=== PATIENT | female | born 1945 | race Caucasian/White ===

== ENCOUNTER → 2016-04-05 | Outpatient (CLI) | payer MEDICARE, MEDICAID ==
[~2016-04-05] MED LIST: ATEN50TA PO; CYANOCOBALAMIN (B-12) 1000 MCG/1 ML VIAL IM ONE; CYANOCOBALAMIN (B-12) 1000 MCG/1 ML VIAL ONE; IBUP-1174 PO; LEVO175T33 PO; MACI1TAB2 PO; MULTTAB61 OR; RAMI10CA38 PO; RIOC1TAB3 PO
[2016-04-05 15:28] VITALS: BP 161/71
[2016-04-05 16:14] LABS: Basophils # (auto) 0 uL; Basophils % (auto) 0.3 % (0.0-2.0); Eosinophils # (auto) 0.1 uL; Eosinophils % (auto) 2.2 % (0.0-7.0); Hematocrit 36.6 % (36.0-46.0); Hemoglobin 11.6 g/dL (12.2-16.2); Lymphocytes # (auto) 1.4 uL; Lymphocytes % (auto) 29.2 % (10.0-50.0); Mean Corpuscular Hemoglobin 27.5 pg (28.0-32.0); Mean Corpuscular Hgb Conc. 31.7 g/dL (32.0-36.0); Mean Corpuscular Volume 86.8 fL (80.0-100.0); Mean Platelet Volume 7.5 fL (7.4-10.4); Monocytes # (auto) 0.5 uL; Monocytes % (auto) 9.6 % (0.0-12.0); Neutrophils # (auto) 2.9 uL; Neutrophils % (auto) 58.7 % (37.0-80.0); Platelet Count (auto) 243 10^3/uL (140-450); Red Cell Distribution Width 15.5 % (11.6-16.0); White Blood Cell 4.9 10^3/uL (4.4-10.8)
[2016-04-05 16:32] LABS: Albumin 3.3 g/dL (3.4-5.0); Calcium 8.6 mg/dL (8.5-10.1); Magnesium 2.1 mg/dL (1.6-2.6); Potassium 3.9 mmol/L (3.5-5.1)
[2016-04-05 16:35] LABS: BUN/Creatinine Ratio 22.7; Bilirubin, Total 0.5 mg/dL (0.2-1.0); Total Protein 6.9 g/dL (6.4-8.2)
== END | disposition home or self-care (01) ==
LOC: CHF HDHVI 15:07
PROVIDERS: ATTEND Internal Medicine Cardiovascular Disease
DX: I10 Essential (primary) hypertension (principal); D64.9 Anemia, unspecified; E83.40 Disorders of magnesium metabolism, unspecified; E11.9 Type 2 diabetes mellitus without complications
CPT/HCPCS: 36415; 80053; 83036; 83735; 85025; 93701; 96372; G0463

== ENCOUNTER → 2016-04-19 | Outpatient (CLI) | payer MEDICARE, MEDICAID ==
[2016-04-19 14:00] VITALS: BP 138/54
[2016-04-19 15:55] VITALS: BP 113/44
[2016-04-19 16:38] LABS: Basophils # (auto) 0 uL; Basophils % (auto) 0.2 % (0.0-2.0); Eosinophils # (auto) 0.1 uL; Eosinophils % (auto) 1.6 % (0.0-7.0); Hematocrit 37.8 % (36.0-46.0); Hemoglobin 11.8 g/dL (12.2-16.2); Lymphocytes # (auto) 1.1 uL; Lymphocytes % (auto) 12.3 % (10.0-50.0); Mean Corpuscular Hemoglobin 27.4 pg (28.0-32.0); Mean Corpuscular Hgb Conc. 31.2 g/dL (32.0-36.0); Mean Corpuscular Volume 87.8 fL (80.0-100.0); Mean Platelet Volume 8.6 fL (7.4-10.4); Monocytes # (auto) 0.9 uL; Monocytes % (auto) 9.7 % (0.0-12.0); Neutrophils # (auto) 6.8 uL; Neutrophils % (auto) 76.2 % (37.0-80.0); Platelet Count (auto) 256 10^3/uL (140-450); Red Cell Distribution Width 14.9 % (11.6-16.0); White Blood Cell 8.9 10^3/uL (4.4-10.8)
[2016-04-19 16:43] LABS: Potassium 3.6 mmol/L (3.5-5.1)
== END | disposition home or self-care (01) ==
LOC: CHF HDHVI 14:06
PROVIDERS: ATTEND Internal Medicine Cardiovascular Disease
DX: J06.9 Acute upper respiratory infection, unspecified (principal); R09.3 Abnormal sputum; I50.9 Heart failure, unspecified; Z79.899 Other long term (current) drug therapy; D64.9 Anemia, unspecified
CPT/HCPCS: 36415; 82565; 84132; 84520; 85025; 87070; 87205; G0463

== ENCOUNTER → 2016-04-24 | Outpatient (CLI) | payer MEDICARE, MEDICAID ==
[~2016-04-24] MED LIST changes: -CYANOCOBALAMIN (B-12) 1000 MCG/1 ML VIAL IM ONE; -CYANOCOBALAMIN (B-12) 1000 MCG/1 ML VIAL ONE
[2016-04-24 14:35] VITALS: BP 166/67
[2016-04-24 15:20] VITALS: BP 164/64
== END | disposition home or self-care (01) ==
LOC: Rad HDHVI 14:42
PROVIDERS: ATTEND Internal Medicine Cardiovascular Disease
DX: I11.0 Hypertensive heart disease with heart failure (principal)
CPT/HCPCS: 71020; G0463

== ENCOUNTER → 2016-07-23 | Outpatient (CLI) | payer MEDICARE, MEDICAID ==
[~2016-07-23] MED LIST changes: +CYANOCOBALAMIN (B-12) 1000 MCG/1 ML VIAL IM ONE; +CYANOCOBALAMIN (B-12) 1000 MCG/1 ML VIAL ONE
[2016-07-23 13:00] VITALS: BP 129/68
[2016-07-23 14:45] VITALS: BP 140/73
[2016-07-23 16:30] LABS: Basophils # (auto) 0 uL; Basophils % (auto) 0.1 % (0.0-2.0); Eosinophils # (auto) 0.1 uL; Eosinophils % (auto) 1.3 % (0.0-7.0); Hematocrit 36.3 % (36.0-46.0); Hemoglobin 12.1 g/dL (12.2-16.2); Lymphocytes # (auto) 1.7 uL; Lymphocytes % (auto) 32.1 % (10.0-50.0); Mean Corpuscular Hemoglobin 28.6 pg (28.0-32.0); Mean Corpuscular Hgb Conc. 33.2 g/dL (32.0-36.0); Mean Platelet Volume 8.1 fL (7.4-10.4); Monocytes # (auto) 0.5 uL; Neutrophils % (auto) 56.5 % (37.0-80.0); Platelet Count (auto) 212 10^3/uL (140-450); Red Cell Distribution Width 16.3 % (11.6-16.0); White Blood Cell 5.3 10^3/uL (4.4-10.8)
[2016-07-23 17:04] LABS: BUN/Creatinine Ratio 29.3; Calcium 9.1 mg/dL (8.5-10.1); Magnesium 2.4 mg/dL (1.6-2.6)
== END | disposition home or self-care (01) ==
LOC: CHF HDHVI 13:04
PROVIDERS: ATTEND Internal Medicine Cardiovascular Disease
DX: I10 Essential (primary) hypertension (principal); E83.42 Hypomagnesemia; D64.9 Anemia, unspecified
CPT/HCPCS: 36415; 80048; 83735; 85025; 93005; 96372; G0463

== ENCOUNTER → 2016-07-31 | Outpatient (CLI) | payer MEDICARE, MEDICAID ==
[~2016-07-31] MED LIST changes: -CYANOCOBALAMIN (B-12) 1000 MCG/1 ML VIAL IM ONE; -CYANOCOBALAMIN (B-12) 1000 MCG/1 ML VIAL ONE
== END | disposition home or self-care (01) ==
LOC: Rad HDHVI 09:23
PROVIDERS: ATTEND Internal Medicine Cardiovascular Disease
DX: I10 Essential (primary) hypertension (principal); I82.210 Acute embolism and thrombosis of superior vena cava
CPT/HCPCS: 93306

== ENCOUNTER → 2016-08-03 | Outpatient (CLI) | payer MEDICARE, MEDICAID ==
[~2016-08-03] VITALS: Ht 180.3 cm; Wt 110.7 kg
== END | disposition home or self-care (01) ==
LOC: Rad HDHVI 09:14
PROVIDERS: ATTEND Internal Medicine Cardiovascular Disease
DX: I25.10 Atherosclerotic heart disease of native coronary artery without angina pectoris (principal); I10 Essential (primary) hypertension
CPT/HCPCS: 78452; 93017; 96374; A9500

== ENCOUNTER → 2016-11-12 | Outpatient (CLI) | payer MEDICARE, MEDICAID ==
[2016-11-12 13:10] VITALS: BP 144/66
[2016-11-12 14:15] VITALS: BP 144/66
[2016-11-12 16:28] LABS: Basophils # (auto) 0 uL; Basophils % (auto) 0.3 % (0.0-2.0); CONDITION Y; Eosinophils # (auto) 0.1 uL; Eosinophils % (auto) 1.2 % (0.0-7.0); Hematocrit 38.7 % (36.0-46.0); Hemoglobin 12.8 g/dL (12.2-16.2); Lymphocytes # (auto) 1.5 uL; Lymphocytes % (auto) 27.6 % (10.0-50.0); Mean Corpuscular Hemoglobin 28.9 pg (28.0-32.0); Mean Corpuscular Hgb Conc. 32.9 g/dL (32.0-36.0); Mean Corpuscular Volume 87.8 fL (80.0-100.0); Monocytes # (auto) 0.5 uL; Monocytes % (auto) 9.2 % (0.0-12.0); Neutrophils # (auto) 3.4 uL; Neutrophils % (auto) 61.7 % (37.0-80.0); Platelet Count (auto) 216 10^3/uL (140-450); Red Cell Distribution Width 15.1 % (11.6-16.0); White Blood Cell 5.6 10^3/uL (4.4-10.8)
[2016-11-12 16:54] LABS: Albumin 3.6 g/dL (3.4-5.0); BUN/Creatinine Ratio 27.6; Bilirubin, Total 0.4 mg/dL (0.2-1.0); Calcium 9.2 mg/dL (8.5-10.1); Magnesium 2.4 mg/dL (1.6-2.6); Potassium 3.8 mmol/L (3.5-5.1); Total Protein 7.3 g/dL (6.4-8.2); Urine Bilirubin Negative (Negative); Urine Blood 3+ /uL (Negative); Urine Color PINK (Yellow); Urine Glucose Normal (Normal); Urine Ketone Negative (Negative); Urine Mucus FEW (None Seen); Urine Nitrite Negative (Negative); Urine RBC 516 /hpf (0 - 4); Urine Squamous Epithelial Cell FEW /hpf (<5); Urine Urobilinogen Normal (Negative); Urine pH 5.5 (5.0-8.0)
== END | disposition home or self-care (01) ==
LOC: CHF HDHVI 13:16
PROVIDERS: ATTEND Internal Medicine Cardiovascular Disease
DX: I10 Essential (primary) hypertension (principal); E11.9 Type 2 diabetes mellitus without complications; E83.42 Hypomagnesemia; E55.9 Vitamin D deficiency, unspecified; D64.9 Anemia, unspecified; N39.0 Urinary tract infection, site not specified
CPT/HCPCS: 36415; 80053; 81001; 82306; 83036; 83735; 85025; 87086; 93701; 94620; G0463

== ENCOUNTER → 2017-01-14 | Outpatient (CLI) | payer MEDICARE, MEDICAID ==
[~2017-01-14] MED LIST changes: +CYANOCOBALAMIN (B-12) 1000 MCG/1 ML VIAL ONE; +CYANOCOBALAMIN (B-12) 1000 MCG/1 ML VIAL SUBCUT ONE
[2017-01-14 13:30] VITALS: BP 168/71
[2017-01-14 16:19] LABS: Basophils # (auto) 0 uL; Basophils % (auto) 0.4 % (0.0-2.0); Eosinophils # (auto) 0.1 uL; Eosinophils % (auto) 1.8 % (0.0-7.0); Hematocrit 37.3 % (36.0-46.0); Hemoglobin 12.5 g/dL (12.2-16.2); Lymphocytes # (auto) 1.5 uL; Lymphocytes % (auto) 27.9 % (10.0-50.0); Mean Corpuscular Hgb Conc. 33.5 g/dL (32.0-36.0); Mean Corpuscular Volume 86.4 fL (80.0-100.0); Mean Platelet Volume 7.4 fL (6.9-10.8); Monocytes # (auto) 0.5 uL; Neutrophils # (auto) 3.3 uL; Neutrophils % (auto) 60.9 % (37.0-80.0); Nucleated Red Blood Cells % 0.1 %; Platelet Count (auto) 192 10^3/uL (140-450); Red Cell Distribution Width 14.5 % (11.8-14.3); White Blood Cell 5.4 10^3/uL (4.4-10.8)
[2017-01-14 16:38] LABS: Albumin 3.4 g/dL (3.4-5.0); Calcium 8.8 mg/dL (8.5-10.1); Magnesium 2.3 mg/dL (1.6-2.6); Potassium 4.4 mmol/L (3.5-5.1)
[2017-01-14 16:46] LABS: BUN/Creatinine Ratio 18.7; Bilirubin, Total 0.4 mg/dL (0.2-1.0)
== END | disposition home or self-care (01) ==
LOC: CHF HDHVI 13:35
PROVIDERS: ATTEND Internal Medicine Cardiovascular Disease
DX: I10 Essential (primary) hypertension (principal); E83.42 Hypomagnesemia; D64.9 Anemia, unspecified; J44.9 Chronic obstructive pulmonary disease, unspecified; M79.89 Other specified soft tissue disorders
CPT/HCPCS: 36415; 80053; 83735; 85025; 93701; 96372; G0463; J3420

== ENCOUNTER → 2017-02-12 | Outpatient (CLI) | payer MEDICARE, MEDICAID ==
[~2017-02-12] MED LIST changes: -CYANOCOBALAMIN (B-12) 1000 MCG/1 ML VIAL ONE; -CYANOCOBALAMIN (B-12) 1000 MCG/1 ML VIAL SUBCUT ONE
== END | disposition home or self-care (01) ==
LOC: Rad HDHVI 10:42
PROVIDERS: ATTEND Internal Medicine Cardiovascular Disease
DX: I70.0 Atherosclerosis of aorta (principal); J98.11 Atelectasis
CPT/HCPCS: 71020

== ENCOUNTER → 2017-03-15 | Outpatient (CLI) | payer MEDICARE, MEDICAID ==
[~2017-03-15] MED LIST changes: +IOHEXOL 350 MG/ML 100ML IJ ONE; +KETOROLAC TROMETH 60MG/2ML VIAL IM ONE
[2017-03-15 11:40] VITALS: BP 135/59
[2017-03-15 12:44] VITALS: BP 126/59
== END | disposition home or self-care (01) ==
LOC: Rad HDHVI 11:09
PROVIDERS: ATTEND Internal Medicine Cardiovascular Disease
DX: I51.7 Cardiomegaly (principal); I70.0 Atherosclerosis of aorta; J98.11 Atelectasis; I50.9 Heart failure, unspecified; M47.899 Other spondylosis, site unspecified
CPT/HCPCS: 71275; 82565; 96372; 96374; 96375; G0463; J1885; Q9967

== ENCOUNTER → 2017-04-02 | Outpatient (CLI) | payer MEDICARE, MEDICAID ==
[~2017-04-02] MED LIST changes: +ALBUTEROL SULF 2.5 MG/0.5ML(0.5%) NEB SOLN NEB ONE; +ALBUTEROL SULF 2.5 MG/0.5ML(0.5%) NEB SOLN ONE; +CYANOCOBALAMIN (B-12) 1000 MCG/1 ML VIAL IM ONE; +CYANOCOBALAMIN (B-12) 1000 MCG/1 ML VIAL ONE; -IOHEXOL 350 MG/ML 100ML IJ ONE; -KETOROLAC TROMETH 60MG/2ML VIAL IM ONE
[2017-04-02 13:35] VITALS: BP 153/67
[2017-04-02 14:50] VITALS: BP 148/68
== END | disposition home or self-care (01) ==
LOC: Rad HDHVI 13:11
PROVIDERS: ATTEND Internal Medicine Cardiovascular Disease
DX: G45.9 Transient cerebral ischemic attack, unspecified (principal); I27.21 Secondary pulmonary arterial hypertension; D64.9 Anemia, unspecified; J06.9 Acute upper respiratory infection, unspecified
CPT/HCPCS: 93880; 94640; 96372; G0463; J3420

== ENCOUNTER → 2017-04-29 | Outpatient (CLI) | payer MEDICARE, MEDICAID ==
[~2017-04-29] MED LIST changes: -ALBUTEROL SULF 2.5 MG/0.5ML(0.5%) NEB SOLN NEB ONE; -ALBUTEROL SULF 2.5 MG/0.5ML(0.5%) NEB SOLN ONE; +IOHEXOL 350 MG/ML 100ML IJ ONE
[2017-04-29 14:18] VITALS: BP 149/59
[2017-04-29 14:55] VITALS: BP 141/66
== END | disposition home or self-care (01) ==
LOC: Rad HDHVI 14:09
PROVIDERS: ATTEND Internal Medicine Cardiovascular Disease
DX: E04.2 Nontoxic multinodular goiter (principal)
CPT/HCPCS: 70491; 82565; 96372; 96374; G0463; J3420; Q9967

== ENCOUNTER → 2017-06-07 | Outpatient (CLI) | payer MEDICARE, MEDICAID ==
[~2017-06-07] MED LIST changes: -IOHEXOL 350 MG/ML 100ML IJ ONE
[2017-06-07 12:35] VITALS: BP 174/69
[2017-06-07 13:40] VITALS: BP 184/82
[2017-06-07 15:52] LABS: Basophils # (auto) 0 uL; Basophils % (auto) 0.4 % (0.0-2.0); Eosinophils # (auto) 0.1 uL; Eosinophils % (auto) 1.4 % (0.0-7.0); Hematocrit 36.7 % (36.0-46.0); Lymphocytes # (auto) 1.2 uL; Lymphocytes % (auto) 27.9 % (10.0-50.0); Mean Corpuscular Hemoglobin 28.8 pg (28.0-32.0); Mean Corpuscular Hgb Conc. 32.8 g/dL (32.0-36.0); Mean Corpuscular Volume 87.9 fL (80.0-100.0); Monocytes # (auto) 0.5 uL; Monocytes % (auto) 10.7 % (0.0-12.0); Neutrophils # (auto) 2.6 uL; Neutrophils % (auto) 59.6 % (37.0-80.0); Nucleated Red Blood Cells % 0.5 %; Platelet Count (auto) 188 10^3/uL (140-450); Red Blood Cells 4.17 10^6/uL (4.0-5.20); Red Cell Distribution Width 15.4 % (11.8-14.3); White Blood Cell 4.3 10^3/uL (4.4-10.8)
[2017-06-07 15:59] LABS: Albumin 3.6 g/dL (3.4-5.0); Bilirubin, Total 0.5 mg/dL (0.2-1.0); Calcium 8.8 mg/dL (8.5-10.1); Potassium 4.3 mmol/L (3.5-5.1); Total Protein 7.3 g/dL (6.4-8.2)
== END | disposition home or self-care (01) ==
LOC: CHF HDHVI 13:22
PROVIDERS: ATTEND Internal Medicine Cardiovascular Disease
DX: I11.0 Hypertensive heart disease with heart failure (principal); I50.23 Acute on chronic systolic (congestive) heart failure; D51.9 Vitamin B12 deficiency anemia, unspecified; R53.83 Other fatigue; I27.21 Secondary pulmonary arterial hypertension; R06.00 Dyspnea, unspecified; R06.02 Shortness of breath; I50.32 Chronic diastolic (congestive) heart failure; J44.9 Chronic obstructive pulmonary disease, unspecified; Z79.899 Other long term (current) drug therapy
CPT/HCPCS: 36415; 80053; 82306; 82607; 85025; 93701; 94618; 96372; G0463; J3420

== ENCOUNTER → 2017-06-10 | Outpatient (CLI) | payer MEDICARE, MEDICAID ==
[~2017-06-10] MED LIST changes: -CYANOCOBALAMIN (B-12) 1000 MCG/1 ML VIAL IM ONE; -CYANOCOBALAMIN (B-12) 1000 MCG/1 ML VIAL ONE
== END | disposition home or self-care (01) ==
LOC: Rad HDHVI 14:59
PROVIDERS: ATTEND Internal Medicine Cardiovascular Disease
DX: I08.1 Rheumatic disorders of both mitral and tricuspid valves (principal); J44.9 Chronic obstructive pulmonary disease, unspecified; I11.0 Hypertensive heart disease with heart failure; I50.32 Chronic diastolic (congestive) heart failure; E11.9 Type 2 diabetes mellitus without complications; Z79.899 Other long term (current) drug therapy
CPT/HCPCS: 93306

== ENCOUNTER → 2017-08-08 | Outpatient (CLI) | payer MEDICARE, MEDICAID ==
[~2017-08-08] VITALS: Ht 177.8 cm; Wt 98.9 kg
[~2017-08-08] MED LIST changes: +ADENOSINE 83 MG in GIVE UN-DILUTED 0 ML IV ONE; +ADENOSINE 90 MG/30 ML INJ IV ONE
== END | disposition home or self-care (01) ==
LOC: Rad HDHVI 10:47
PROVIDERS: ATTEND Internal Medicine Cardiovascular Disease
DX: I11.0 Hypertensive heart disease with heart failure (principal); I50.23 Acute on chronic systolic (congestive) heart failure; E70.0 Classical phenylketonuria; R60.9 Edema, unspecified; J44.9 Chronic obstructive pulmonary disease, unspecified; E11.9 Type 2 diabetes mellitus without complications; I25.10 Atherosclerotic heart disease of native coronary artery without angina pectoris; E03.9 Hypothyroidism, unspecified; E78.5 Hyperlipidemia, unspecified; Z79.899 Other long term (current) drug therapy
CPT/HCPCS: 78452; 93005; 96374; 96375; A9500; J0153

== ENCOUNTER → 2017-09-05 | Outpatient (CLI) | payer MEDICARE, MEDICAID ==
[~2017-09-05] MED LIST changes: -ADENOSINE 83 MG in GIVE UN-DILUTED 0 ML IV ONE; -ADENOSINE 90 MG/30 ML INJ IV ONE; +CYANOCOBALAMIN (B-12) 1000 MCG/1 ML VIAL IM ONE; +CYANOCOBALAMIN (B-12) 1000 MCG/1 ML VIAL ONE
[2017-09-05 12:25] VITALS: BP 146/65
[2017-09-05 13:35] VITALS: BP 134/66
[2017-09-05 16:23] LABS: Albumin 3.5 g/dL (3.4-5.0); BUN/Creatinine Ratio 17.4; Calcium 8.9 mg/dL (8.5-10.1); Potassium 4.6 mmol/L (3.5-5.1); Urine Bacteria NONE SEEN /hpf (None Seen); Urine Blood 2+ /uL (Negative); Urine Specific Gravity 1.012 (1.001-1.035); Urine WBC 176 /hpf (0 - 5)
[2017-09-05 16:26] LABS: Bilirubin, Total 0.8 mg/dL (0.2-1.0); Total Protein 7.1 g/dL (6.4-8.2)
[2017-09-05 16:35] LABS: Basophils # (auto) 0 uL; Basophils % (auto) 0.3 % (0.0-2.0); Eosinophils # (auto) 0.1 uL; Eosinophils % (auto) 1.3 % (0.0-7.0); Hematocrit 40.2 % (36.0-46.0); Hemoglobin 12.8 g/dL (12.2-16.2); Lymphocytes # (auto) 1.5 uL; Lymphocytes % (auto) 26.8 % (10.0-50.0); Mean Corpuscular Hemoglobin 27.8 pg (28.0-32.0); Mean Corpuscular Hgb Conc. 31.9 g/dL (32.0-36.0); Monocytes # (auto) 0.5 uL; Monocytes % (auto) 9.8 % (0.0-12.0); Neutrophils # (auto) 3.4 uL; Neutrophils % (auto) 61.8 % (37.0-80.0); Nucleated Red Blood Cells % 0.1 %; Platelet Count (auto) 202 10^3/uL (140-450); Red Blood Cells 4.63 10^6/uL (4.0-5.20); Red Cell Distribution Width 14.4 % (11.8-14.3); White Blood Cell 5.6 10^3/uL (4.4-10.8)
== END | disposition home or self-care (01) ==
LOC: CHF HDHVI 12:24
PROVIDERS: ATTEND Internal Medicine Cardiovascular Disease
DX: D51.9 Vitamin B12 deficiency anemia, unspecified (principal); I11.0 Hypertensive heart disease with heart failure; I50.23 Acute on chronic systolic (congestive) heart failure; I25.10 Atherosclerotic heart disease of native coronary artery without angina pectoris; I27.21 Secondary pulmonary arterial hypertension; R42 Dizziness and giddiness; E03.9 Hypothyroidism, unspecified; J44.9 Chronic obstructive pulmonary disease, unspecified; E78.5 Hyperlipidemia, unspecified; E11.9 Type 2 diabetes mellitus without complications; Z79.899 Other long term (current) drug therapy
CPT/HCPCS: 36415; 80053; 81001; 83880; 84443; 85025; 87086; 96372; G0463; J3420

== ENCOUNTER → 2017-11-01 | Outpatient (CLI) | payer MEDICARE, MEDICAID ==
[~2017-11-01] MED LIST changes: +IOHEXOL 350 MG/ML 100ML IJ ONE
[2017-11-01 09:50] VITALS: BP 161/74
[2017-11-01 10:35] VITALS: BP 152/68
== END | disposition home or self-care (01) ==
LOC: Rad HDHVI 09:33
PROVIDERS: ATTEND Internal Medicine Cardiovascular Disease
DX: N39.0 Urinary tract infection, site not specified (principal); D51.9 Vitamin B12 deficiency anemia, unspecified; R16.1 Splenomegaly, not elsewhere classified; N28.1 Cyst of kidney, acquired; I70.0 Atherosclerosis of aorta; K44.9 Diaphragmatic hernia without obstruction or gangrene; I27.21 Secondary pulmonary arterial hypertension; I11.0 Hypertensive heart disease with heart failure; I50.23 Acute on chronic systolic (congestive) heart failure; E11.9 Type 2 diabetes mellitus without complications; J44.9 Chronic obstructive pulmonary disease, unspecified; I25.10 Atherosclerotic heart disease of native coronary artery without angina pectoris; E78.5 Hyperlipidemia, unspecified; E03.9 Hypothyroidism, unspecified; Z79.899 Other long term (current) drug therapy
CPT/HCPCS: 74177; 82565; 96372; G0463; J3420; Q9967

== ENCOUNTER → 2017-12-24 | Outpatient (CLI) | payer MEDICARE, MEDICAID ==
[~2017-12-24] MED LIST changes: -CYANOCOBALAMIN (B-12) 1000 MCG/1 ML VIAL IM ONE; -CYANOCOBALAMIN (B-12) 1000 MCG/1 ML VIAL ONE; -IOHEXOL 350 MG/ML 100ML IJ ONE; +KETOROLAC TROMETH 60MG/2ML VIAL IM ONE
[2017-12-24 14:05] VITALS: BP 130/62
[2017-12-24 14:40] VITALS: BP 126/60
== END | disposition home or self-care (01) ==
LOC: CHF HDHVI 13:56
PROVIDERS: ATTEND Internal Medicine Cardiovascular Disease
DX: I11.0 Hypertensive heart disease with heart failure (principal); I50.23 Acute on chronic systolic (congestive) heart failure; I20.9 Angina pectoris, unspecified; I25.10 Atherosclerotic heart disease of native coronary artery without angina pectoris; D51.3 Other dietary vitamin B12 deficiency anemia; R06.02 Shortness of breath; J44.9 Chronic obstructive pulmonary disease, unspecified; I70.0 Atherosclerosis of aorta; E78.5 Hyperlipidemia, unspecified; E03.9 Hypothyroidism, unspecified; K44.9 Diaphragmatic hernia without obstruction or gangrene; I27.29 Other secondary pulmonary hypertension; E11.9 Type 2 diabetes mellitus without complications; N28.1 Cyst of kidney, acquired; Z79.899 Other long term (current) drug therapy
CPT/HCPCS: 71046; 93005; 96372; G0463; J1885

== ENCOUNTER → 2018-02-11 | Outpatient (CLI) | payer MEDICARE, MEDICAID ==
[~2018-02-11] MED LIST changes: +CYANOCOBALAMIN (B-12) 1000 MCG/1 ML VIAL IM ONE; +CYANOCOBALAMIN (B-12) 1000 MCG/1 ML VIAL ONE
[2018-02-11 10:35] VITALS: BP 151/66
[2018-02-11 12:00] VITALS: BP 145/66
[2018-02-11 15:56] LABS: Basophils # (auto) 0 uL; Basophils % (auto) 0.4 % (0.0-2.0); Eosinophils # (auto) 0.1 uL; Eosinophils % (auto) 1.6 % (0.0-7.0); Hematocrit 38.5 % (36.0-46.0); Hemoglobin 12.6 g/dL (12.2-16.2); Lymphocytes # (auto) 0.9 uL; Lymphocytes % (auto) 26.8 % (10.0-50.0); Mean Corpuscular Hemoglobin 28.5 pg (28.0-32.0); Mean Corpuscular Hgb Conc. 32.7 g/dL (32.0-36.0); Mean Corpuscular Volume 87.1 fL (80.0-100.0); Monocytes # (auto) 0.4 uL; Monocytes % (auto) 10.3 % (0.0-12.0); Neutrophils # (auto) 2.2 uL; Neutrophils % (auto) 60.9 % (37.0-80.0); Nucleated Red Blood Cells % 0.4 %; Platelet Count (auto) 203 10^3/uL (140-450); Red Blood Cells 4.42 10^6/uL (4.0-5.20); Red Cell Distribution Width 15.7 % (11.8-14.3); White Blood Cell 3.5 10^3/uL (4.4-10.8)
[2018-02-11 16:07] LABS: Albumin 3.2 g/dL (3.4-5.0); BUN/Creatinine Ratio 17.6; Calcium 8.8 mg/dL (8.5-10.1); Magnesium 2.5 mg/dL (1.6-2.6); Potassium 4.1 mmol/L (3.5-5.1)
[2018-02-11 16:10] LABS: Bilirubin, Total 0.4 mg/dL (0.2-1.0)
== END | disposition home or self-care (01) ==
LOC: CHF HDHVI 10:25
PROVIDERS: ATTEND Internal Medicine Cardiovascular Disease
DX: S22.32XA Fracture of one rib, left side, initial encounter for closed fracture (principal); W19.XXXA Unspecified fall, initial encounter; D64.9 Anemia, unspecified; E83.40 Disorders of magnesium metabolism, unspecified; I27.21 Secondary pulmonary arterial hypertension; I11.0 Hypertensive heart disease with heart failure; I50.42 Chronic combined systolic (congestive) and diastolic (congestive) heart failure; E11.9 Type 2 diabetes mellitus without complications; I25.10 Atherosclerotic heart disease of native coronary artery without angina pectoris; J44.9 Chronic obstructive pulmonary disease, unspecified; E78.5 Hyperlipidemia, unspecified; F41.9 Anxiety disorder, unspecified; G47.33 Obstructive sleep apnea (adult) (pediatric); E03.9 Hypothyroidism, unspecified; E66.01 Morbid (severe) obesity due to excess calories; Y93.89 Activity, other specified; Y92.89 Other specified places as the place of occurrence of the external cause; Y99.8 Other external cause status; Z79.899 Other long term (current) drug therapy; Z87.440 Personal history of urinary (tract) infections; Z86.73 Personal history of transient ischemic attack (TIA), and cerebral infarction without residual deficits; Z90.710 Acquired absence of both cervix and uterus; Z90.89 Acquired absence of other organs; Z90.49 Acquired absence of other specified parts of digestive tract; Z86.718 Personal history of other venous thrombosis and embolism; Z99.81 Dependence on supplemental oxygen; Z68.38 Body mass index [BMI] 38.0-38.9, adult
CPT/HCPCS: 36415; 71101; 80053; 83735; 85025; 93701; 94618; 96372; G0463; J1885; J3420

== ENCOUNTER → 2018-04-07 | Outpatient (CLI) | payer MEDICARE, MEDICAID ==
[~2018-04-07] MED LIST changes: -KETOROLAC TROMETH 60MG/2ML VIAL IM ONE
[2018-04-07 11:15] VITALS: BP 145/72
[2018-04-07 12:00] VITALS: BP 139/66
--- NOTE | 2018-04-07 12:00 | NUR ---
IN TO CLINIC FOR PAH FOLLOWUP. LABS DRAWN AND SENT. CARDIODYNAMICS DONE AND REVIEWED. Discharge Instructions See e-MAR for any mediations given with this visit. Patient education given on disease process. Patient verbalized understanding. Previous labs reviewed. Patient discharged in stable condition with after care instructions and follow up appointment. MEDICATION ADMINISTRATION VIT B12 1000 MCG IM TO RIGHT DELTOID AT 1150
[2018-04-07 15:56] LABS: Basophils # (auto) 0 uL; Basophils % (auto) 0.6 % (0.0-2.0); Eosinophils # (auto) 0.1 uL; Eosinophils % (auto) 1.8 % (0.0-7.0); Hematocrit 37.3 % (36.0-46.0); Hemoglobin 12.5 g/dL (12.2-16.2); Lymphocytes # (auto) 1.3 uL; Lymphocytes % (auto) 29.2 % (10.0-50.0); Mean Corpuscular Hemoglobin 29.1 pg (28.0-32.0); Mean Corpuscular Hgb Conc. 33.4 g/dL (32.0-36.0); Monocytes # (auto) 0.5 uL; Monocytes % (auto) 10.9 % (0.0-12.0); Neutrophils # (auto) 2.5 uL; Neutrophils % (auto) 57.5 % (37.0-80.0); Nucleated Red Blood Cells % 0.4 %; Platelet Count (auto) 174 10^3/uL (140-450); Red Blood Cells 4.29 10^6/uL (4.0-5.20); Red Cell Distribution Width 14.8 % (11.8-14.3); White Blood Cell 4.3 10^3/uL (4.4-10.8)
[2018-04-07 16:15] LABS: BUN/Creatinine Ratio 23.2; Calcium 8.4 mg/dL (8.5-10.1); Potassium 4.1 mmol/L (3.5-5.1)
== END | disposition home or self-care (01) ==
LOC: Rad HDHVI 10:17
PROVIDERS: ATTEND Internal Medicine Cardiovascular Disease
DX: I11.0 Hypertensive heart disease with heart failure (principal); I50.42 Chronic combined systolic (congestive) and diastolic (congestive) heart failure; I25.10 Atherosclerotic heart disease of native coronary artery without angina pectoris; D64.9 Anemia, unspecified; I27.21 Secondary pulmonary arterial hypertension; M85.9 Disorder of bone density and structure, unspecified; J44.9 Chronic obstructive pulmonary disease, unspecified; G47.33 Obstructive sleep apnea (adult) (pediatric); F41.9 Anxiety disorder, unspecified; E78.5 Hyperlipidemia, unspecified; E03.9 Hypothyroidism, unspecified; E66.01 Morbid (severe) obesity due to excess calories; E70.0 Classical phenylketonuria; Z99.81 Dependence on supplemental oxygen; Z86.73 Personal history of transient ischemic attack (TIA), and cerebral infarction without residual deficits; Z68.38 Body mass index [BMI] 38.0-38.9, adult; Z79.899 Other long term (current) drug therapy; Z86.711 Personal history of pulmonary embolism; Z90.49 Acquired absence of other specified parts of digestive tract; Z90.710 Acquired absence of both cervix and uterus
CPT/HCPCS: 36415; 77078; 80048; 85025; 93306; 93701; 96372; G0463; J3420

== ENCOUNTER → 2018-08-11 | Outpatient (CLI) | payer MEDICARE, MEDICAID ==
[2018-08-11 14:05] VITALS: BP 154/72
--- NOTE | 2018-08-11 14:05 | NUR ---
CHF CLINIC Discharge Instructions See e-MAR for any mediations given with this visit. Patient education given on disease process. Patient verbalized understanding. Previous labs reviewed. Patient discharged in stable condition with after care instructions and follow up appointment. NOTE B12 IM L DELTOID ADMIN BY DORETHA VELÁSQUEZ PRESCRIPTION FOR LEVAQUIN 500MG DAILY FOR 7 DAYS GIVEN TO PATIENT.
[2018-08-11 16:19] LABS: Basophils # (auto) 0 uL; Basophils % (auto) 0.3 % (0.0-2.0); Calcium 8.4 mg/dL (8.5-10.1); Eosinophils # (auto) 0.1 uL; Eosinophils % (auto) 1.3 % (0.0-7.0); Hematocrit 37.9 % (36.0-46.0); Hemoglobin 12.4 g/dL (12.2-16.2); Lymphocytes % (auto) 13.6 % (10.0-50.0); Mean Corpuscular Hemoglobin 28.7 pg (28.0-32.0); Mean Corpuscular Hgb Conc. 32.7 g/dL (32.0-36.0); Mean Corpuscular Volume 87.7 fL (80.0-100.0); Monocytes # (auto) 0.7 uL; Monocytes % (auto) 10.1 % (0.0-12.0); Neutrophils # (auto) 5.3 uL; Neutrophils % (auto) 74.7 % (37.0-80.0); Platelet Count (auto) 271 10^3/uL (140-450); Potassium 3.8 mmol/L (3.5-5.1); Red Blood Cells 4.32 10^6/uL (4.0-5.20); Red Cell Distribution Width 15.2 % (11.8-14.3); White Blood Cell 7.1 10^3/uL (4.4-10.8)
[2018-08-11 16:24] LABS: Albumin 2.7 g/dL (3.4-5.0); BUN/Creatinine Ratio 16.1; Bilirubin, Total 0.6 mg/dL (0.2-1.0); Magnesium 2.6 mg/dL (1.6-2.6); Total Protein 6.8 g/dL (6.4-8.2)
== END | disposition home or self-care (01) ==
LOC: CHF HDHVI 12:45
PROVIDERS: ATTEND Internal Medicine Cardiovascular Disease
DX: I27.21 Secondary pulmonary arterial hypertension (principal); D64.9 Anemia, unspecified; E83.40 Disorders of magnesium metabolism, unspecified; I10 Essential (primary) hypertension; R05 Cough; H10.9 Unspecified conjunctivitis
CPT/HCPCS: 36415; 80053; 83735; 85025; 93701; 96372; G0463; J3420

== ENCOUNTER → 2018-08-25 | Outpatient (CLI) | payer MEDICARE, MEDICAID ==
[~2018-08-25] VITALS: Ht 180.3 cm; Wt 91.6 kg
[~2018-08-25] MED LIST changes: +ADENOSINE 77 MG in GIVE UN-DILUTED 0 ML IV ONE; +ADENOSINE 90 MG/30 ML INJ IV ONE; -CYANOCOBALAMIN (B-12) 1000 MCG/1 ML VIAL IM ONE; -CYANOCOBALAMIN (B-12) 1000 MCG/1 ML VIAL ONE
== END | disposition home or self-care (01) ==
LOC: Rad HDHVI 09:25
PROVIDERS: ATTEND Internal Medicine Cardiovascular Disease
DX: I11.0 Hypertensive heart disease with heart failure (principal); I50.33 Acute on chronic diastolic (congestive) heart failure; R00.2 Palpitations; R07.89 Other chest pain; R06.02 Shortness of breath; E78.5 Hyperlipidemia, unspecified; I35.0 Nonrheumatic aortic (valve) stenosis
CPT/HCPCS: 78452; 93005; 96374; 96375; A9500; J0153

== ENCOUNTER → 2018-11-18 | Outpatient (CLI) | payer MEDICARE, MEDICAID ==
[~2018-11-18] MED LIST changes: -ADENOSINE 77 MG in GIVE UN-DILUTED 0 ML IV ONE; -ADENOSINE 90 MG/30 ML INJ IV ONE; +CYANOCOBALAMIN (B-12) 1000 MCG/1 ML VIAL IM ONE; +CYANOCOBALAMIN (B-12) 1000 MCG/1 ML VIAL ONE; +IOHEXOL 350 MG/ML 100ML IJ ONE
--- NOTE | 2018-11-18 10:00 | NUR ---
CHF PT ARRIVED TO THE CHF CLINIC FOR ABD/PELVIS CT WITH IV CONTRAST. A/O X 4 0 DISTRESS VSS
--- NOTE | 2018-11-18 10:20 | NUR ---
IV insertion IV access obtained, via clean sterile technique by inserting 22 gauge catheter at RAC after attempt(s). IV secured properly. No trauma to site. Patient tolerated procedure well.
[2018-11-18 10:30] VITALS: BP_SYST 139; BP_SYST 192; BP_DIAS 78; BP_DIAS 88
[2018-11-18 12:21] LABS: Basophils # (auto) 0 uL; Basophils % (auto) 0.4 % (0.0-2.0); Eosinophils # (auto) 0.1 uL; Eosinophils % (auto) 1.5 % (0.0-7.0); Hematocrit 40.3 % (36.0-46.0); Hemoglobin 13.3 g/dL (12.2-16.2); Lymphocytes # (auto) 1.1 uL; Lymphocytes % (auto) 22.8 % (10.0-50.0); Mean Corpuscular Hemoglobin 28.5 pg (28.0-32.0); Mean Corpuscular Hgb Conc. 32.9 g/dL (32.0-36.0); Mean Corpuscular Volume 86.6 fL (80.0-100.0); Monocytes # (auto) 0.5 uL; Monocytes % (auto) 9.4 % (0.0-12.0); Neutrophils # (auto) 3.3 uL; Neutrophils % (auto) 65.9 % (37.0-80.0); Nucleated Red Blood Cells % 0.1 %; Platelet Count (auto) 189 10^3/uL (140-450); Red Blood Cells 4.65 10^6/uL (4.0-5.20); Red Cell Distribution Width 15.8 % (11.8-14.3)
[2018-11-18 12:32] LABS: Calcium 9.4 mg/dL (8.5-10.1); Potassium 4.4 mmol/L (3.5-5.1)
--- NOTE | 2018-11-18 13:10 | NUR ---
IV removal IV DC'd with sterile technique, catheter fully intact. Pressure dressing applied to site. Patient tolerated procedure well. Discharged with aftercare instructions per . NOTE: Addendum: 11/18/18 at 1448 by HAZEL GAYTAN RN RI REPEAT
--- NOTE | 2018-11-18 13:10 | NUR ---
IV removal IV DC'd with sterile technique, catheter fully intact. Pressure dressing applied to site. Patient tolerated procedure well. Discharged with aftercare instructions per MD. NOTE:
--- NOTE | 2018-11-18 13:10 | NUR ---
Discharge Instructions See e-MAR for any mediations given with this visit. Patient education given on disease process. Patient verbalized understanding. Previous labs reviewed. Patient discharged in stable condition with after care instructions and follow up appointment. MEDS VITAMIN B12 IM
[2018-11-18 13:15] VITALS: BP 192/88
[2018-11-18 16:22] LABS: Urine Blood Negative /uL (Negative); Urine Specific Gravity 1.022 (1.001-1.035)
== END | disposition home or self-care (01) ==
LOC: Rad HDHVI 10:01
PROVIDERS: ATTEND Internal Medicine Cardiovascular Disease
DX: N39.0 Urinary tract infection, site not specified (principal); I51.7 Cardiomegaly; D64.9 Anemia, unspecified; R06.02 Shortness of breath; R10.9 Unspecified abdominal pain; I10 Essential (primary) hypertension
CPT/HCPCS: 36415; 71046; 74177; 80048; 81003; 85025; 87086; 93701; 96372; G0463; J3420; Q9967

== ENCOUNTER → 2018-12-25 | Outpatient (CLI) | payer MEDICARE, MEDICAID ==
[~2018-12-25] VITALS: Ht 1 cm; Wt 92.6 kg
[~2018-12-25] MED LIST changes: -IOHEXOL 350 MG/ML 100ML IJ ONE
[2018-12-25 12:10] VITALS: BP 143/66
[2018-12-25 13:01] VITALS: BP 131/56
--- NOTE | 2018-12-25 13:01 | NUR ---
Discharge Instructions See e-MAR for any mediations given with this visit. Patient education given on disease process. Patient verbalized understanding. Previous labs reviewed. Patient discharged in stable condition with after care instructions and follow up appointment. MEDICATIONS VIT B12 IM Addendum: 12/25/18 at 1712 by HAZEL MARTIN. CELESTE DC CARDIODYNAMICS 6 MWT PT TOLERATED WELL WALKED 90 METERS MORE 0 DISTRESS
[2018-12-25 16:12] LABS: BUN/Creatinine Ratio 19.7; Calcium 8.9 mg/dL (8.5-10.1); Magnesium 2.2 mg/dL (1.6-2.6); Potassium 4.5 mmol/L (3.5-5.1)
[2018-12-25 17:17] LABS: Basophils # (auto) 0 uL; Basophils % (auto) 0.4 % (0.0-2.0); Eosinophils # (auto) 0.1 uL; Eosinophils % (auto) 1.1 % (0.0-7.0); Hematocrit 37.9 % (36.0-46.0); Hemoglobin 12.4 g/dL (12.2-16.2); Lymphocytes # (auto) 1.4 uL; Lymphocytes % (auto) 29.1 % (10.0-50.0); Mean Corpuscular Hemoglobin 28.3 pg (28.0-32.0); Mean Corpuscular Hgb Conc. 32.8 g/dL (32.0-36.0); Mean Corpuscular Volume 86.4 fL (80.0-100.0); Monocytes # (auto) 0.5 uL; Monocytes % (auto) 10.2 % (0.0-12.0); Neutrophils # (auto) 2.8 uL; Neutrophils % (auto) 59.2 % (37.0-80.0); Nucleated Red Blood Cells % 0.1 %; Platelet Count (auto) 199 10^3/uL (140-450); Red Blood Cells 4.39 10^6/uL (4.0-5.20); Red Cell Distribution Width 15.9 % (11.8-14.3); White Blood Cell 4.7 10^3/uL (4.4-10.8)
== END | disposition home or self-care (01) ==
LOC: CHF HDHVI 13:08
PROVIDERS: ATTEND Internal Medicine Cardiovascular Disease
DX: I27.21 Secondary pulmonary arterial hypertension (principal); D51.9 Vitamin B12 deficiency anemia, unspecified; E03.9 Hypothyroidism, unspecified; D64.9 Anemia, unspecified; I10 Essential (primary) hypertension; E11.9 Type 2 diabetes mellitus without complications; E55.9 Vitamin D deficiency, unspecified; R53.83 Other fatigue
CPT/HCPCS: 36415; 80048; 82306; 82607; 83036; 83735; 84443; 85025; 93701; 94618; 96372; G0463; J3420

== ENCOUNTER → 2019-01-12 | Outpatient (CLI) | payer MEDICARE, MEDICAID ==
[~2019-01-12] MED LIST changes: -CYANOCOBALAMIN (B-12) 1000 MCG/1 ML VIAL IM ONE; -CYANOCOBALAMIN (B-12) 1000 MCG/1 ML VIAL ONE
[2019-01-12 16:03] LABS: Potassium 4.4 mmol/L (3.5-5.1)
[2019-01-12 16:05] LABS: Basophils # (auto) 0 uL; Basophils % (auto) 0.8 % (0.0-2.0); Eosinophils # (auto) 0 uL; Eosinophils % (auto) 1.2 % (0.0-7.0); Hematocrit 36.6 % (36.0-46.0); Hemoglobin 12.3 g/dL (12.2-16.2); Lymphocytes # (auto) 1.1 uL; Lymphocytes % (auto) 28.6 % (10.0-50.0); Mean Corpuscular Hemoglobin 29.2 pg (28.0-32.0); Mean Corpuscular Hgb Conc. 33.7 g/dL (32.0-36.0); Mean Corpuscular Volume 86.6 fL (80.0-100.0); Monocytes # (auto) 0.4 uL; Neutrophils # (auto) 2.2 uL; Neutrophils % (auto) 58.4 % (37.0-80.0); Platelet Count (auto) 162 10^3/uL (140-450); Red Blood Cells 4.22 10^6/uL (4.0-5.20); Red Cell Distribution Width 16.4 % (11.8-14.3); White Blood Cell 3.7 10^3/uL (4.4-10.8)
[2019-01-12 16:15] LABS: Albumin 3.5 g/dL (3.4-5.0); Bilirubin, Total 0.3 mg/dL (0.2-1.0); Calcium 9.3 mg/dL (8.5-10.1); Total Protein 7.5 g/dL (6.4-8.2)
== END | disposition home or self-care (01) ==
LOC: LAB 13:35
PROVIDERS: ATTEND Internal Medicine Cardiovascular Disease
DX: R59.1 Generalized enlarged lymph nodes (principal); R97.1 Elevated cancer antigen 125 [CA 125]; Z90.710 Acquired absence of both cervix and uterus; Z90.49 Acquired absence of other specified parts of digestive tract; Z88.1 Allergy status to other antibiotic agents
CPT/HCPCS: 36415; 80053; 83615; 85025; 86304

== ENCOUNTER → 2019-04-17 | Outpatient (CLI) | payer MEDICARE, MEDICAID ==
[~2019-04-17] MED LIST changes: +CYANOCOBALAMIN (B-12) 1000 MCG/1 ML VIAL IM ONE; +CYANOCOBALAMIN (B-12) 1000 MCG/1 ML VIAL ONE
[2019-04-17 14:00] VITALS: BP 145/68
[2019-04-17 15:00] VITALS: BP 161/80
--- NOTE | 2019-04-17 15:00 | NUR ---
CHF CLINIC Discharge Instructions See e-MAR for any mediations given with this visit. Patient education given on disease process. Patient verbalized understanding. Previous labs reviewed. Patient discharged in stable condition with after care instructions and follow up appointment. NOTE B12 IM R DELTOID ADMIN BY HAZEL ALONSO CARDIODYNAMICS DONE BY DORETHA VELÁSQUEZ AND REVIEWED WITH PATIENT. 6 MWT COMPLETED, PATIENT STAYED AT 420M.
[2019-04-17 16:01] LABS: Basophils # (auto) 0 uL; Basophils % (auto) 0.4 % (0.0-2.0); Eosinophils # (auto) 0.1 uL; Eosinophils % (auto) 1.6 % (0.0-7.0); Hemoglobin 11.9 g/dL (12.2-16.2); Mean Corpuscular Hemoglobin 28.8 pg (28.0-32.0); Mean Corpuscular Hgb Conc. 33.2 g/dL (32.0-36.0); Mean Corpuscular Volume 86.7 fL (80.0-100.0); Monocytes # (auto) 0.4 uL; Monocytes % (auto) 11.1 % (0.0-12.0); Neutrophils # (auto) 2.3 uL; Neutrophils % (auto) 59.9 % (37.0-80.0); Nucleated Red Blood Cells % 0.1 %; Platelet Count (auto) 187 10^3/uL (140-450); Red Blood Cells 4.15 10^6/uL (4.0-5.20); Red Cell Distribution Width 14.4 % (11.8-14.3); White Blood Cell 3.9 10^3/uL (4.4-10.8)
[2019-04-17 16:17] LABS: Calcium 8.8 mg/dL (8.5-10.1); Potassium 4.5 mmol/L (3.5-5.1)
[2019-04-17 16:20] LABS: Albumin 3.2 g/dL (3.4-5.0); BUN/Creatinine Ratio 20.9; Magnesium 2.2 mg/dL (1.6-2.6)
[2019-04-17 16:23] LABS: Bilirubin, Total 0.3 mg/dL (0.2-1.0); Total Protein 7.2 g/dL (6.4-8.2)
== END | disposition home or self-care (01) ==
LOC: CHF HDHVI 13:51
PROVIDERS: ATTEND Internal Medicine Cardiovascular Disease
DX: I27.21 Secondary pulmonary arterial hypertension (principal); R53.83 Other fatigue; D64.9 Anemia, unspecified; E03.9 Hypothyroidism, unspecified; R06.02 Shortness of breath; Z79.899 Other long term (current) drug therapy
CPT/HCPCS: 36415; 80053; 83735; 85025; 93701; 94618; 96372; G0463; J3420

== ENCOUNTER → 2019-04-24 | Outpatient (CLI) | payer MEDICARE, MEDICAID ==
[~2019-04-24] MED LIST changes: -CYANOCOBALAMIN (B-12) 1000 MCG/1 ML VIAL IM ONE; -CYANOCOBALAMIN (B-12) 1000 MCG/1 ML VIAL ONE
== END | disposition home or self-care (01) ==
LOC: Rad HDHVI 13:11
PROVIDERS: ATTEND Internal Medicine Cardiovascular Disease
DX: I10 Essential (primary) hypertension (principal); R06.02 Shortness of breath; R07.89 Other chest pain
CPT/HCPCS: 93306

== ENCOUNTER → 2019-08-19 | Outpatient (CLI) | payer MEDICARE, MEDICAID ==
[2019-08-19 15:57] LABS: Basophils # (auto) 0 10 ^3/uL (0-0.2); Basophils % (auto) 0.4 % (0.0-2.0); Eosinophils # (auto) 0.1 10 ^3/uL (0-0.8); Hematocrit 40.7 % (36.0-46.0); Hemoglobin 13.1 g/dL (12.2-16.2); Lymphocytes # (auto) 1.1 10 ^3/uL (0.4-5.4); Lymphocytes % (auto) 20.6 % (10.0-50.0); Mean Corpuscular Hemoglobin 27.3 pg (28.0-32.0); Mean Corpuscular Hgb Conc. 32.2 g/dL (32.0-36.0); Monocytes # (auto) 0.6 10 ^3/uL (0-1.3); Monocytes % (auto) 11.6 % (0.0-12.0); Neutrophils # (auto) 3.3 10 ^3/uL (1.6-8.6); Neutrophils % (auto) 65.4 % (37.0-80.0); Platelet Count (auto) 210 10^3/uL (140-450); Red Blood Cells 4.79 10^6/uL (4.0-5.20); Red Cell Distribution Width 14.9 % (11.8-14.3); White Blood Cell 5.1 10^3/uL (4.4-10.8)
[2019-08-19 16:06] LABS: Albumin 3.1 g/dL (3.4-5.0); Calcium 8.9 mg/dL (8.5-10.1); Potassium 4.4 mmol/L (3.5-5.1)
[2019-08-19 16:08] LABS: BUN/Creatinine Ratio 18.6
[2019-08-19 16:11] LABS: Bilirubin, Total 0.6 mg/dL (0.2-1.0); Total Protein 7.5 g/dL (6.4-8.2)
[2019-08-19 16:30] LABS: INR 1.01 (0.9-1.15); Partial Thromboplastin Time 26.8 sec (23.64-32.05)
== END | disposition home or self-care (01) ==
LOC: LAB 10:35
PROVIDERS: ATTEND Internal Medicine Cardiovascular Disease
DX: R59.1 Generalized enlarged lymph nodes (principal); I11.0 Hypertensive heart disease with heart failure; I50.33 Acute on chronic diastolic (congestive) heart failure; R97.1 Elevated cancer antigen 125 [CA 125]; R06.02 Shortness of breath; R79.1 Abnormal coagulation profile
CPT/HCPCS: 36415; 80053; 83615; 85025; 85610; 85730; 86304

== ENCOUNTER 2019-08-23 10:09 | Emergency (ER) | payer MEDICARE, MEDICAID ==
[~2019-08-23] VITALS: Ht 180.3 cm; Wt 111.1 kg
[2019-08-23 11:19] VITALS: BP 141/69
[2019-08-23] MEDS ORDERED: TETANUS-DIPTH-ACEL PERTUSSIS 0.5ML SYR Tdap IM ONE (13:00)
[2019-08-23] MEDS ORDERED: ACETAMINOPHEN 325 MG TAB PO ONE (13:00)
[2019-08-23] MEDS ORDERED: LIDOCAINE 2% (LOCAL ANESTH.) PF 5ml SDV ONE (13:58)
[2019-08-23] MEDS ORDERED: NEOMYCIN-BACITRACIN-POLYM UNITDOSE PKG TOP OINT TOP ONE (15:30)
[2019-08-23] MEDS ORDERED: LIDOCAINE 2% (LOCAL ANESTH.) PF 5ml SDV ID ONE (15:30)
== END 2019-08-23 16:44 | disposition home or self-care (01) ==
LOC: ER 10:09 → EDBD 10:09 → ER 16:44
DX: S62.612A Displaced fracture of proximal phalanx of right middle finger, initial encounter for closed fracture (principal); S62.614A Displaced fracture of proximal phalanx of right ring finger, initial encounter for closed fracture; S62.616A Displaced fracture of proximal phalanx of right little finger, initial encounter for closed fracture; S01.81XA Laceration without foreign body of other part of head, initial encounter; J45.909 Unspecified asthma, uncomplicated; I10 Essential (primary) hypertension; Z90.49 Acquired absence of other specified parts of digestive tract; Z90.710 Acquired absence of both cervix and uterus; W01.0XXA Fall on same level from slipping, tripping and stumbling without subsequent striking against object, initial encounter; Y93.89 Activity, other specified; Y92.89 Other specified places as the place of occurrence of the external cause; Y99.8 Other external cause status; Z86.73 Personal history of transient ischemic attack (TIA), and cerebral infarction without residual deficits
CPT/HCPCS: 12052; 29125; 70450; 70486; 73110; 73130; 90471; 90715; 93005; 99285; J2001

== ENCOUNTER → 2019-08-25 | Outpatient (CLI) | payer MEDICARE, MEDICAID ==
[~2019-08-25] VITALS: Ht 30.5 cm; Wt 0.5 kg
[~2019-08-25] MED LIST changes: +BACITRACIN INJ 50000 UNIT VIAL TOP ONE; +BACITRACIN TOP OINT 1 UD PKG TOP ONE; +CYANOCOBALAMIN (B-12) 1000 MCG/1 ML VIAL IM ONE; +CYANOCOBALAMIN (B-12) 1000 MCG/1 ML VIAL ONE; +MULT-1018 OR; -MULTTAB61 OR
[2019-08-25 12:15] VITALS: BP 127/55
--- NOTE | 2019-08-25 12:15 | NUR ---
CHF PT ARRIVED TO THE CHF CLINIC FOR EVAL S/P FALL ON SUN 08/23/19. PT ARRIVED WITH R ARM IN SLING WITH SPLINT. SUTURES INTACT TO THE R FOREHEAD. ECCHYMOSIS TO THE ORBITAL AREA WITH VARIUS STAGES OF HEALING PT DENIES BLURRED VISION. A/OX3, PLACED ON O2 @ 3L N/C. AMBULATORY.
--- NOTE | 2019-08-25 13:01 | NUR ---
Wound Care Wound care provided per MD order. SUTURES INTACT CLEANED WITH NS AND BACITRACIN APPLIED TO SUTURE SITE. TELFA APPLIED TO SUTURES AND TEGADERM PLACED OVER. PAPER TAPE PLACED AROUND TEGADERM. BY WALDO ALONSO. Patient tolerated well and verbalized dressing care instructions.
--- NOTE | 2019-08-25 13:15 | NUR ---
WALDO ALONSO REVIEWED CT RESULTS OBTAINED FROM [facility] WITH PT. 3, 4, 5 DIGIT BROKE ON R HAND.
[2019-08-25 14:15] VITALS: BP 135/56
--- NOTE | 2019-08-25 14:15 | NUR ---
Discharge Instructions See e-MAR for any mediations given with this visit. Patient education given on disease process. Patient verbalized understanding. Previous labs reviewed. Patient discharged in stable condition with after care instructions and follow up appointment. ON SATURDAY WITH MD NOEL. PT IS TO BE FOLLOWED BY HOME HEALTH. SUPPLIES AND WOUND CARE INSTRUCTIONS WERE GIVEN TO THE PT. PT VERBALIZED UNDERSTANDING. NOTE WOUND DONE BY WALDO ALONSO VIT B12 IM ADMIN BY DORETHA Garcia DELTOID LOT# [id number] EXP 12/23
== END | disposition home or self-care (01) ==
LOC: CHF HDHVI 12:40
PROVIDERS: ATTEND Internal Medicine Cardiovascular Disease
DX: R53.83 Other fatigue (principal); R59.1 Generalized enlarged lymph nodes; S09.90XD Unspecified injury of head, subsequent encounter; Z79.899 Other long term (current) drug therapy; W19.XXXD Unspecified fall, subsequent encounter
CPT/HCPCS: 96372; G0463; J3420

== ENCOUNTER → 2019-11-11 | Outpatient (CLI) | payer MEDICARE, MEDICAID ==
[~2019-11-11] MED LIST changes: -BACITRACIN INJ 50000 UNIT VIAL TOP ONE; -BACITRACIN TOP OINT 1 UD PKG TOP ONE
[2019-11-11 09:57] VITALS: BP 169/74
--- NOTE | 2019-11-11 09:57 | NUR ---
CLINIC PT ARRIVED TO THE CHF CLINIC FOR MONTHLY CHF EVAL AND TX. A/OX4, AMBULATORY, BREATHING IS EVEN AND UNLABORED.
--- NOTE | 2019-11-11 10:11 | NUR ---
6MWT DONE BY DORETHA VELÁSQUEZ PT C/O [facility] THRU TEST. PT WORE SANDALS AND USED PORTABLE O2 TANK 2L NC. PT DID 105M LESS THAN LAST 6MWT.
--- NOTE | 2019-11-11 10:35 | NUR ---
LABS DRAWN AND SENT
[2019-11-11 10:42] VITALS: BP 165/69
--- NOTE | 2019-11-11 10:42 | NUR ---
Discharge Instructions See e-MAR for any mediations given with this visit. Patient education given on disease process. Patient verbalized understanding. Previous labs reviewed. Patient discharged in stable condition with after care instructions and follow up appointment IN 1 MONTH. NOTE VIT B12 IM ADMIN BY DORETHA GARZA LOT#[id number] EXP 05/23 6MWT DONE BY DORETHA VELÁSQUEZ 255M
[2019-11-11 11:51] LABS: Potassium 4.2 mmol/L (3.5-5.1)
[2019-11-11 12:03] LABS: Hematocrit 40.5 % (36.0-46.0); Hemoglobin 13.2 g/dL (12.2-16.2); Mean Corpuscular Hemoglobin 27.3 pg (28.0-32.0); Mean Corpuscular Hgb Conc. 32.6 g/dL (32.0-36.0); Mean Corpuscular Volume 83.8 fL (80.0-100.0); Platelet Count (auto) 159 10^3/uL (140-450); Red Blood Cells 4.84 10^6/uL (4.0-5.20); Red Cell Distribution Width 16.1 % (11.8-14.3); White Blood Cell 3.9 10^3/uL (4.4-10.8)
[2019-11-11 12:12] LABS: Albumin 3.4 g/dL (3.4-5.0); BUN/Creatinine Ratio 17.7; Bilirubin, Total 0.8 mg/dL (0.2-1.0); Calcium 9.1 mg/dL (8.5-10.1); Magnesium 2.3 mg/dL (1.6-2.6); Total Protein 7.2 g/dL (6.4-8.2)
[2019-11-11 12:17] LABS: Basophils % (manual) 0 (0.0-2.0); Blast Cells 0; Metamyelocytes % 0; Myelocytes % 0; Promyelocytes % 0; Reactive Lymphocytes 0
[2019-11-11 12:34] LABS: Eosinophils % (manual) 2 (0-7); Lymphocytes % (manual) 17 (10.0-50.0); Monocytes % (manual) 5 (0-12)
[2019-11-11 12:35] LABS: Band Neutrophils % (manual) 3
== END | disposition home or self-care (01) ==
LOC: CHF HDHVI 10:17
PROVIDERS: ATTEND Internal Medicine Cardiovascular Disease
DX: I27.0 Primary pulmonary hypertension (principal); R53.83 Other fatigue; I50.32 Chronic diastolic (congestive) heart failure; J45.909 Unspecified asthma, uncomplicated; Z79.899 Other long term (current) drug therapy; Z90.49 Acquired absence of other specified parts of digestive tract; Z90.710 Acquired absence of both cervix and uterus
CPT/HCPCS: 36415; 80053; 82306; 83036; 83735; 85007; 85027; 94618; 96372; G0463; J3420

== ENCOUNTER → 2020-01-25 | Outpatient (CLI) | payer MEDICARE, MEDICAID ==
[~2020-01-25] VITALS: Ht 177.8 cm; Wt 102.5 kg
[~2020-01-25] MED LIST changes: -CYANOCOBALAMIN (B-12) 1000 MCG/1 ML VIAL IM ONE; -CYANOCOBALAMIN (B-12) 1000 MCG/1 ML VIAL ONE; +amLODIPine BESYLATE 5 MG TAB ONE
== END | disposition home or self-care (01) ==
LOC: Rad HDHVI 13:54
PROVIDERS: ATTEND Internal Medicine Cardiovascular Disease
DX: R07.9 Chest pain, unspecified (principal); I10 Essential (primary) hypertension; Z82.49 Family history of ischemic heart disease and other diseases of the circulatory system
CPT/HCPCS: 78452; 93017; 96374; A9500

== ENCOUNTER → 2020-04-08 | Outpatient (CLI) | payer MEDICARE, MEDICAID ==
[~2020-04-08] MED LIST changes: +CYANOCOBALAMIN (B-12) 1000 MCG/1 ML VIAL IM ONE; +CYANOCOBALAMIN (B-12) 1000 MCG/1 ML VIAL ONE; +LEVO175T2 PO; -LEVO175T33 PO; +RIOC1TAB12 PO; -RIOC1TAB3 PO; -amLODIPine BESYLATE 5 MG TAB ONE
[2020-04-08 11:23] VITALS: BP 146/66
[2020-04-08 12:25] VITALS: BP 145/72
[2020-04-08 15:51] LABS: Basophils # (auto) 0 10 ^3/uL (0-0.2); Basophils % (auto) 0.3 % (0.0-2.0); Eosinophils # (auto) 0.1 10 ^3/uL (0-0.8); Eosinophils % (auto) 1.9 % (0.0-7.0); Hematocrit 37.7 % (36.0-46.0); Hemoglobin 12.6 g/dL (12.2-16.2); Lymphocytes # (auto) 1.1 10 ^3/uL (0.4-5.4); Lymphocytes % (auto) 23.5 % (10.0-50.0); Mean Corpuscular Hemoglobin 29.2 pg (28.0-32.0); Mean Corpuscular Hgb Conc. 33.5 g/dL (32.0-36.0); Mean Corpuscular Volume 87.1 fL (80.0-100.0); Monocytes # (auto) 0.5 10 ^3/uL (0-1.3); Monocytes % (auto) 10.2 % (0.0-12.0); Neutrophils # (auto) 3.1 10 ^3/uL (1.6-8.6); Neutrophils % (auto) 64.1 % (37.0-80.0); Nucleated Red Blood Cells % 0.4 %; Platelet Count (auto) 192 10^3/uL (140-450); Red Blood Cells 4.33 10^6/uL (4.0-5.20); Red Cell Distribution Width 13.9 % (11.8-14.3); White Blood Cell 4.8 10^3/uL (4.4-10.8)
[2020-04-08 16:08] LABS: Albumin 3.2 g/dL (3.4-5.0); BUN/Creatinine Ratio 26.8; Calcium 8.9 mg/dL (8.5-10.1); Magnesium 2.5 mg/dL (1.6-2.6); Potassium 4.2 mmol/L (3.5-5.1)
[2020-04-08 16:19] LABS: Bilirubin, Total 0.6 mg/dL (0.2-1.0); Total Protein 7.5 g/dL (6.4-8.2)
== END | disposition home or self-care (01) ==
LOC: Rad HDHVI 11:32
PROVIDERS: ATTEND Internal Medicine Cardiovascular Disease
DX: I27.21 Secondary pulmonary arterial hypertension (principal); R53.83 Other fatigue; I11.0 Hypertensive heart disease with heart failure; I50.32 Chronic diastolic (congestive) heart failure; Z79.899 Other long term (current) drug therapy
CPT/HCPCS: 36415; 71046; 80053; 82607; 83036; 83735; 83880; 85025; 94618; 96372; G0463; J3420

== ENCOUNTER → 2020-04-12 | Outpatient (CLI) | payer MEDICARE, MEDICAID ==
[~2020-04-12] MED LIST changes: -CYANOCOBALAMIN (B-12) 1000 MCG/1 ML VIAL IM ONE; -CYANOCOBALAMIN (B-12) 1000 MCG/1 ML VIAL ONE
== END | disposition home or self-care (01) ==
LOC: Rad HDHVI 14:57
PROVIDERS: ATTEND Internal Medicine Cardiovascular Disease
DX: I20.0 Unstable angina (principal); R06.02 Shortness of breath
CPT/HCPCS: 93306

== ENCOUNTER → 2020-06-20 | Outpatient (CLI) | payer MEDICARE, MEDICAID ==
[~2020-06-20] MED LIST changes: +AMLO-489 PO; +CYCL10TA6 PO; +FLUT1SPR5; +FURO1TAB31 PO; +GABA300C10 PO; +IBUP600T27 PO; +MONT5CHW23 PO; +POTA10TA51 PO
[2020-06-20 08:18] VITALS: BP 171/77
[2020-06-20 08:33] VITALS: BP 171/71
[2020-06-20 12:43] LABS: Basophils # (auto) 0 10 ^3/uL (0-0.2); Basophils % (auto) 0.6 % (0.0-2.0); Eosinophils # (auto) 0.1 10 ^3/uL (0-0.8); Eosinophils % (auto) 1.6 % (0.0-7.0); Hematocrit 40.3 % (36.0-46.0); Hemoglobin 13.3 g/dL (12.2-16.2); Lymphocytes # (auto) 1.1 10 ^3/uL (0.4-5.4); Lymphocytes % (auto) 23.7 % (10.0-50.0); Mean Corpuscular Hemoglobin 28.3 pg (28.0-32.0); Mean Corpuscular Hgb Conc. 32.9 g/dL (32.0-36.0); Monocytes # (auto) 0.5 10 ^3/uL (0-1.3); Monocytes % (auto) 9.9 % (0.0-12.0); Neutrophils % (auto) 64.2 % (37.0-80.0); Nucleated Red Blood Cells % 0.1 %; Platelet Count (auto) 200 10^3/uL (140-450); Red Blood Cells 4.69 10^6/uL (4.0-5.20); Red Cell Distribution Width 14.6 % (11.8-14.3); White Blood Cell 4.7 10^3/uL (4.4-10.8)
[2020-06-20 12:53] LABS: Calcium 9.4 mg/dL (8.5-10.1); Potassium 4.3 mmol/L (3.5-5.1)
[2020-06-20 12:55] LABS: BUN/Creatinine Ratio 18.6
[2020-06-20 13:00] LABS: Partial Thromboplastin Time 26.2 sec (23.0-31.2)
== END | disposition home or self-care (01) ==
LOC: Rad HDHVI 08:09
PROVIDERS: ATTEND Internal Medicine Cardiovascular Disease
DX: Z01.812 Encounter for preprocedural laboratory examination (principal); I70.0 Atherosclerosis of aorta; I51.7 Cardiomegaly; I27.21 Secondary pulmonary arterial hypertension; R06.02 Shortness of breath
CPT/HCPCS: 36415; 71046; 80048; 85025; 85610; 85730; 93005; G0463

== ENCOUNTER 2020-06-23 09:13 | Day surgery (SDC) | payer MEDICARE, MEDICAID ==
[~2020-06-23] VITALS: Ht 177.8 cm; Wt 102.5 kg
[~2020-06-23 09:13] MED LIST changes: -IBUP-1174 PO; -MULT-1018 OR; -RAMI10CA38 PO
[2020-06-23] MEDS ORDERED: IOHEXOL 350 MG/ML 100ML IJ ONE ×2 (12:05→12:37)
[2020-06-23] MEDS ORDERED: LIDOCAINE 2%HCL (LOCAL ANESTH.) INJ 20ML MDV ONE (12:05)
[2020-06-23] MEDS ORDERED: ANGIOMAX 250 MG VIAL IV ONE (12:26)
[2020-06-23] MEDS ORDERED: SODIUM CHL 0.9% 0 ML ONE (12:27)
[2020-06-23] MEDS ORDERED: MIDAZOLAM HCL 1MG/1ML-2 ML VIAL ONE (12:27)
[2020-06-23] MEDS ORDERED: fentaNYL CITRATE 100 MCG/2 ML VL ONE (12:27)
== END 2020-06-23 16:04 | disposition home or self-care (01) ==
LOC: CATH 09:13
PROVIDERS: ATTEND Internal Medicine Cardiovascular Disease
DX: R06.02 Shortness of breath (principal); I10 Essential (primary) hypertension; J43.9 Emphysema, unspecified; G47.30 Sleep apnea, unspecified; F41.9 Anxiety disorder, unspecified; F32.9 Major depressive disorder, single episode, unspecified; Z68.32 Body mass index [BMI] 32.0-32.9, adult; Z20.822 Contact with and (suspected) exposure to COVID-19; Z98.890 Other specified postprocedural states; Z79.899 Other long term (current) drug therapy; Z86.73 Personal history of transient ischemic attack (TIA), and cerebral infarction without residual deficits; Z88.8 Allergy status to other drugs, medicaments and biological substances; Z86.718 Personal history of other venous thrombosis and embolism; Z90.710 Acquired absence of both cervix and uterus
CPT/HCPCS: 93460; C1760; C1894; J1644; J2250; J3010; Q9967; U0003; 99152; 99153

== ENCOUNTER → 2021-04-14 | Outpatient (CLI) | payer MEDICARE, MEDICAID ==
[~2021-04-14] MED LIST changes: +CYANOCOBALAMIN (B-12) 1000 MCG/1 ML VIAL IM ONE; +CYANOCOBALAMIN (B-12) 1000 MCG/1 ML VIAL ONE; +CYCL-839 PO; -CYCL10TA6 PO
[2021-04-14 10:45] VITALS: BP 163/79
[2021-04-14 11:30] VITALS: BP 165/77
[2021-04-14 15:32] LABS: Basophils # (auto) 0 10 ^3/uL (0-0.2); Eosinophils # (auto) 0 10 ^3/uL (0-0.8); Hemoglobin 12.2 g/dL (12.2-16.2); Lymphocytes # (auto) 0.9 10 ^3/uL (0.4-5.4); Mean Corpuscular Hemoglobin 26.8 pg (28.0-32.0); Monocytes # (auto) 0.5 10 ^3/uL (0-1.3); Nucleated Red Blood Cells % 0.1 %; Red Blood Cells 4.56 10^6/uL (4.0-5.20)
[2021-04-14 15:34] LABS: Basophils % (auto) 0.6 % (0.0-2.0); Eosinophils % (auto) 0.9 % (0.0-7.0); Hematocrit 38.3 % (36.0-46.0); Lymphocytes % (auto) 21.5 % (10.0-50.0); Mean Corpuscular Hgb Conc. 31.8 g/dL (32.0-36.0); Monocytes % (auto) 11.4 % (0.0-12.0); Neutrophils # (auto) 2.8 10 ^3/uL (1.6-8.6); Neutrophils % (auto) 65.6 % (37.0-80.0); Red Cell Distribution Width 15.8 % (11.8-14.3); White Blood Cell 4.2 10^3/uL (4.4-10.8)
[2021-04-14 15:35] LABS: Albumin 3.1 g/dL (3.4-5.0); Calcium 9.3 mg/dL (8.5-10.1); Potassium 4.2 mmol/L (3.5-5.1)
[2021-04-14 15:51] LABS: BUN/Creatinine Ratio 26.2; Bilirubin, Total 0.5 mg/dL (0.2-1.0); Total Protein 7.1 g/dL (6.4-8.2)
== END | disposition home or self-care (01) ==
LOC: CHF HDHVI 10:42
PROVIDERS: ATTEND Internal Medicine Cardiovascular Disease
DX: I27.21 Secondary pulmonary arterial hypertension (principal); I10 Essential (primary) hypertension; E78.5 Hyperlipidemia, unspecified; M48.02 Spinal stenosis, cervical region; M48.04 Spinal stenosis, thoracic region; F32.9 Major depressive disorder, single episode, unspecified; Z79.899 Other long term (current) drug therapy; Z86.718 Personal history of other venous thrombosis and embolism; Z86.73 Personal history of transient ischemic attack (TIA), and cerebral infarction without residual deficits
CPT/HCPCS: 36415; 80053; 82306; 82607; 83036; 83735; 83880; 84443; 85025; 94618; 96372; G0463; J3420

== ENCOUNTER → 2021-04-20 | Outpatient (CLI) | payer MEDICARE, MEDICAID ==
[~2021-04-20] MED LIST changes: -CYANOCOBALAMIN (B-12) 1000 MCG/1 ML VIAL IM ONE; -CYANOCOBALAMIN (B-12) 1000 MCG/1 ML VIAL ONE
== END | disposition home or self-care (01) ==
LOC: Rad HDHVI 13:04
PROVIDERS: ATTEND Internal Medicine Cardiovascular Disease
DX: I08.3 Combined rheumatic disorders of mitral, aortic and tricuspid valves (principal)
CPT/HCPCS: 93306

== ENCOUNTER → 2021-05-12 | Outpatient (CLI) | payer MEDICARE, MEDICAID ==
[~2021-05-12] MED LIST changes: +CYANOCOBALAMIN (B-12) 1000 MCG/1 ML VIAL IM ONE; +CYANOCOBALAMIN (B-12) 1000 MCG/1 ML VIAL ONE
[2021-05-12 10:42] VITALS: BP 154/59
[2021-05-12 11:02] VITALS: BP 136/57
[2021-05-12 11:30] LABS: Basophils # (auto) 0 10 ^3/uL (0-0.2); Basophils % (auto) 0.5 % (0.0-2.0); Eosinophils # (auto) 0.1 10 ^3/uL (0-0.8); Eosinophils % (auto) 1.4 % (0.0-7.0); Hematocrit 38.1 % (36.0-46.0); Hemoglobin 12.4 g/dL (12.2-16.2); Lymphocytes % (auto) 23.5 % (10.0-50.0); Mean Corpuscular Hemoglobin 27.1 pg (28.0-32.0); Mean Corpuscular Hgb Conc. 32.6 g/dL (32.0-36.0); Mean Corpuscular Volume 83.2 fL (80.0-100.0); Monocytes # (auto) 0.4 10 ^3/uL (0-1.3); Monocytes % (auto) 9.2 % (0.0-12.0); Neutrophils # (auto) 2.8 10 ^3/uL (1.6-8.6); Neutrophils % (auto) 65.4 % (37.0-80.0); Red Blood Cells 4.58 10^6/uL (4.0-5.20); Red Cell Distribution Width 15.5 % (11.8-14.3); White Blood Cell 4.3 10^3/uL (4.4-10.8)
[2021-05-12 12:20] LABS: BUN/Creatinine Ratio 20.5; Magnesium 2.4 mg/dL (1.6-2.6); Potassium 4.1 mmol/L (3.5-5.1)
[2021-05-12 12:23] LABS: Bilirubin, Total 0.6 mg/dL (0.2-1.0); Total Protein 6.9 g/dL (6.4-8.2)
== END | disposition home or self-care (01) ==
LOC: CHF HDHVI 10:43
PROVIDERS: ATTEND Internal Medicine Cardiovascular Disease
DX: I27.21 Secondary pulmonary arterial hypertension (principal); I08.3 Combined rheumatic disorders of mitral, aortic and tricuspid valves; I10 Essential (primary) hypertension; E78.5 Hyperlipidemia, unspecified; F32.9 Major depressive disorder, single episode, unspecified; M48.02 Spinal stenosis, cervical region; M48.04 Spinal stenosis, thoracic region; Z79.899 Other long term (current) drug therapy; Z86.718 Personal history of other venous thrombosis and embolism; Z86.73 Personal history of transient ischemic attack (TIA), and cerebral infarction without residual deficits
CPT/HCPCS: 36415; 80053; 83735; 83880; 85025; 96372; G0463; J3420

== ENCOUNTER → 2021-09-28 | Outpatient (CLI) | payer MEDICARE, MEDICAID ==
[2021-09-28 09:40] VITALS: BP 155/55
[2021-09-28 10:22] VITALS: BP 153/58
[2021-09-28 12:42] LABS: Basophils # (auto) 0 10 ^3/uL (0-0.2); Basophils % (auto) 0.2 % (0.0-2.0); Eosinophils # (auto) 0 10 ^3/uL (0-0.8); Eosinophils % (auto) 0.8 % (0.0-7.0); Hemoglobin 12.3 g/dL (12.2-16.2); Lymphocytes # (auto) 1.4 10 ^3/uL (0.4-5.4); Lymphocytes % (auto) 24.7 % (10.0-50.0); Mean Corpuscular Hemoglobin 26.8 pg (28.0-32.0); Mean Corpuscular Hgb Conc. 31.7 g/dL (32.0-36.0); Mean Corpuscular Volume 84.7 fL (80.0-100.0); Monocytes # (auto) 0.6 10 ^3/uL (0-1.3); Neutrophils # (auto) 3.7 10 ^3/uL (1.6-8.6); Neutrophils % (auto) 63.3 % (37.0-80.0); Red Cell Distribution Width 15.4 % (11.8-14.3); White Blood Cell 5.8 10^3/uL (4.4-10.8)
[2021-09-28 12:55] LABS: BUN/Creatinine Ratio 17.7; Calcium 8.9 mg/dL (8.5-10.1); Magnesium 2.2 mg/dL (1.6-2.6)
[2021-09-28 12:57] LABS: Bilirubin, Total 0.6 mg/dL (0.2-1.0); Total Protein 6.6 g/dL (6.4-8.2)
== END | disposition home or self-care (01) ==
LOC: CHF HDHVI 09:40
PROVIDERS: ATTEND Internal Medicine Cardiovascular Disease
DX: I27.21 Secondary pulmonary arterial hypertension (principal); I10 Essential (primary) hypertension
CPT/HCPCS: 36415; 80053; 83735; 85025; 96372; G0463; J3420

== ENCOUNTER → 2021-10-02 | Outpatient (CLI) | payer MEDICARE, MEDICAID ==
[~2021-10-02] VITALS: Ht 175.3 cm; Wt 101.6 kg
[~2021-10-02] MED LIST changes: +ADENOSINE 85 MG in GIVE UN-DILUTED 0 ML IV ONE; +ADENOSINE 90 MG/30 ML INJ IV ONE
== END | disposition home or self-care (01) ==
LOC: Rad HDHVI 09:45
PROVIDERS: ATTEND Internal Medicine Cardiovascular Disease
DX: I27.21 Secondary pulmonary arterial hypertension (principal); I11.0 Hypertensive heart disease with heart failure; I50.33 Acute on chronic diastolic (congestive) heart failure; R42 Dizziness and giddiness; Z82.49 Family history of ischemic heart disease and other diseases of the circulatory system
CPT/HCPCS: 78452; 93005; 96372; 96374; 96375; A9500; J0153; J3420

== ENCOUNTER → 2021-10-13 | Outpatient (CLI) | payer MEDICARE, MEDICAID ==
[~2021-10-13] MED LIST changes: -ADENOSINE 85 MG in GIVE UN-DILUTED 0 ML IV ONE; -ADENOSINE 90 MG/30 ML INJ IV ONE; -CYANOCOBALAMIN (B-12) 1000 MCG/1 ML VIAL IM ONE; -CYANOCOBALAMIN (B-12) 1000 MCG/1 ML VIAL ONE
== END | disposition home or self-care (01) ==
LOC: Rad HDHVI 08:02
PROVIDERS: ATTEND Internal Medicine Cardiovascular Disease
DX: I08.3 Combined rheumatic disorders of mitral, aortic and tricuspid valves (principal); I27.20 Pulmonary hypertension, unspecified; I11.9 Hypertensive heart disease without heart failure; R00.2 Palpitations
CPT/HCPCS: 93306

== ENCOUNTER → 2021-10-26 | Outpatient (CLI) | payer MEDICARE, MEDICAID ==
[~2021-10-26] VITALS: Ht 30.5 cm; Wt 101.4 kg
[~2021-10-26] MED LIST changes: +CYANOCOBALAMIN (B-12) 1000 MCG/1 ML VIAL IM ONE; +CYANOCOBALAMIN (B-12) 1000 MCG/1 ML VIAL ONE
[2021-10-26 09:16] VITALS: BP 137/66
[2021-10-26 10:05] VITALS: BP 131/66
[2021-10-26 11:57] LABS: Basophils # (auto) 0 10 ^3/uL (0-0.2); Basophils % (auto) 0.5 % (0.0-2.0); Eosinophils # (auto) 0.1 10 ^3/uL (0-0.8); Mean Corpuscular Volume 85.4 fL (80.0-100.0); Monocytes # (auto) 0.6 10 ^3/uL (0-1.3); Neutrophils # (auto) 3.5 10 ^3/uL (1.6-8.6); White Blood Cell 5.4 10^3/uL (4.4-10.8)
[2021-10-26 11:58] LABS: Eosinophils % (auto) 1.1 % (0.0-7.0); Hematocrit 39.6 % (36.0-46.0); Hemoglobin 12.5 g/dL (12.2-16.2); Lymphocytes # (auto) 1.3 10 ^3/uL (0.4-5.4); Lymphocytes % (auto) 23.3 % (10.0-50.0); Mean Corpuscular Hemoglobin 26.9 pg (28.0-32.0); Mean Corpuscular Hgb Conc. 31.5 g/dL (32.0-36.0); Monocytes % (auto) 10.6 % (0.0-12.0); Neutrophils % (auto) 64.5 % (37.0-80.0); Nucleated Red Blood Cells % 0.2 %; Red Blood Cells 4.64 10^6/uL (4.0-5.20); Red Cell Distribution Width 15.9 % (11.8-14.3)
[2021-10-26 12:18] LABS: Calcium 9.3 mg/dL (8.5-10.1); Magnesium 2.4 mg/dL (1.6-2.6); Potassium 4.3 mmol/L (3.5-5.1)
[2021-10-26 12:20] LABS: BUN/Creatinine Ratio 21.7
[2021-10-26 12:23] LABS: Bilirubin, Total 0.7 mg/dL (0.2-1.0); Total Protein 6.7 g/dL (6.4-8.2)
[2021-10-26 12:36] LABS: Free T4 (Free Thyroxine) 1.47 ng/dL (0.89-1.76)
[2021-10-26 12:37] LABS: Free T3 2.48 pg/mL (2.3-4.2); T3 Total 1.08 ng/mL (0.60-1.81)
== END | disposition home or self-care (01) ==
LOC: CHF HDHVI 09:09
PROVIDERS: ATTEND Internal Medicine Cardiovascular Disease
DX: I27.21 Secondary pulmonary arterial hypertension (principal); I11.0 Hypertensive heart disease with heart failure; I50.33 Acute on chronic diastolic (congestive) heart failure; E55.9 Vitamin D deficiency, unspecified; D64.9 Anemia, unspecified; Z79.899 Other long term (current) drug therapy
CPT/HCPCS: 36415; 80053; 82306; 83036; 83735; 83970; 84439; 84443; 84480; 84481; 85025; 96372; G0463; J3420

== ENCOUNTER → 2021-12-20 | Outpatient (CLI) | payer MEDICARE, MEDICAID ==
[2021-12-20 10:11] VITALS: BP 139/69
[2021-12-20 10:35] VITALS: BP 135/68
[2021-12-20 12:56] LABS: Albumin 3.1 g/dL (3.4-5.0); Basophils # (auto) 0 10 ^3/uL (0-0.2); Basophils % (auto) 0.6 % (0.0-2.0); Calcium 8.9 mg/dL (8.5-10.1); Eosinophils # (auto) 0.1 10 ^3/uL (0-0.8); Eosinophils % (auto) 1.7 % (0.0-7.0); Hematocrit 39.8 % (36.0-46.0); Hemoglobin 12.9 g/dL (12.2-16.2); Lymphocytes # (auto) 1.4 10 ^3/uL (0.4-5.4); Lymphocytes % (auto) 26.6 % (10.0-50.0); Magnesium 2.2 mg/dL (1.6-2.6); Mean Corpuscular Hemoglobin 27.1 pg (28.0-32.0); Mean Corpuscular Hgb Conc. 32.3 g/dL (32.0-36.0); Mean Corpuscular Volume 83.8 fL (80.0-100.0); Monocytes # (auto) 0.6 10 ^3/uL (0-1.3); Monocytes % (auto) 11.3 % (0.0-12.0); Neutrophils # (auto) 3.1 10 ^3/uL (1.6-8.6); Neutrophils % (auto) 59.8 % (37.0-80.0); Potassium 4.5 mmol/L (3.5-5.1); Red Blood Cells 4.75 10^6/uL (4.0-5.20); Red Cell Distribution Width 15.2 % (11.8-14.3); White Blood Cell 5.2 10^3/uL (4.4-10.8)
[2021-12-20 13:00] LABS: BUN/Creatinine Ratio 17.4; Bilirubin, Total 0.8 mg/dL (0.2-1.0); Total Protein 7.1 g/dL (6.4-8.2)
== END | disposition home or self-care (01) ==
LOC: CHF HDHVI 10:05
PROVIDERS: ATTEND Internal Medicine Cardiovascular Disease
DX: I27.0 Primary pulmonary hypertension (principal); I10 Essential (primary) hypertension; D64.9 Anemia, unspecified
CPT/HCPCS: 36415; 80053; 83735; 85025; 96372; G0463; J3420

== ENCOUNTER → 2022-03-26 | Outpatient (CLI) | payer MEDICARE, MEDICAID ==
[~2022-03-26] MED LIST changes: +LEVO500T31 PO
[2022-03-26 09:58] VITALS: BP 152/69
[2022-03-26 10:30] VITALS: BP 146/68
[2022-03-26 12:10] LABS: Basophils # (auto) 0 10 ^3/uL (0-0.2); Eosinophils # (auto) 0.1 10 ^3/uL (0-0.8); Hemoglobin 12.8 g/dL (12.2-16.2); Monocytes # (auto) 0.5 10 ^3/uL (0-1.3); Nucleated Red Blood Cells % 0.1 %; White Blood Cell 4.2 10^3/uL (4.4-10.8)
[2022-03-26 12:12] LABS: Basophils % (auto) 0.6 % (0.0-2.0); Eosinophils % (auto) 1.4 % (0.0-7.0); Hematocrit 40.1 % (36.0-46.0); Lymphocytes % (auto) 23.6 % (10.0-50.0); Mean Corpuscular Hemoglobin 26.8 pg (28.0-32.0); Mean Corpuscular Volume 83.8 fL (80.0-100.0); Monocytes % (auto) 11.8 % (0.0-12.0); Neutrophils # (auto) 2.6 10 ^3/uL (1.6-8.6); Neutrophils % (auto) 62.6 % (37.0-80.0); Red Blood Cells 4.78 10^6/uL (4.0-5.20); Red Cell Distribution Width 17.2 % (11.8-14.3)
[2022-03-26 12:20] LABS: Albumin 3.3 g/dL (3.4-5.0); Calcium 8.8 mg/dL (8.5-10.1); Magnesium 2.1 mg/dL (1.6-2.6); Potassium 4.5 mmol/L (3.5-5.1)
[2022-03-26 12:23] LABS: BUN/Creatinine Ratio 20.6; Bilirubin, Total 0.6 mg/dL (0.2-1.0)
== END | disposition home or self-care (01) ==
LOC: Rad HDHVI 09:07
PROVIDERS: ATTEND Internal Medicine Cardiovascular Disease
DX: I27.21 Secondary pulmonary arterial hypertension (principal); I10 Essential (primary) hypertension; E78.5 Hyperlipidemia, unspecified; R53.83 Other fatigue; D64.9 Anemia, unspecified; E83.42 Hypomagnesemia
CPT/HCPCS: 36415; 80053; 83735; 85025; 93880; 96372; G0463; J3420

== ENCOUNTER 2022-04-18 13:43 | Inpatient (IN) | payer MEDICARE, MEDICAID ==
[~2022-04-18] VITALS: Ht 172.7 cm; Wt 104.9 kg
[~2022-04-18 13:43] MED LIST changes: -CYANOCOBALAMIN (B-12) 1000 MCG/1 ML VIAL IM ONE; -CYANOCOBALAMIN (B-12) 1000 MCG/1 ML VIAL ONE; -LEVO500T31 PO
[2022-04-18 14:51] LABS: Basophils # (auto) 0 10 ^3/uL (0-0.2); Basophils % (auto) 0.5 % (0.0-2.0); Eosinophils # (auto) 0.1 10 ^3/uL (0-0.8); Eosinophils % (auto) 1.5 % (0.0-7.0); Hematocrit 38.5 % (36.0-46.0); Hemoglobin 12.8 g/dL (12.2-16.2); Lymphocytes # (auto) 1.4 10 ^3/uL (0.4-5.4); Lymphocytes % (auto) 27.9 % (10.0-50.0); Mean Corpuscular Hemoglobin 27.6 pg (28.0-32.0); Mean Corpuscular Hgb Conc. 33.3 g/dL (32.0-36.0); Mean Corpuscular Volume 82.8 fL (80.0-100.0); Monocytes # (auto) 0.5 10 ^3/uL (0-1.3); Monocytes % (auto) 11.1 % (0.0-12.0); Neutrophils # (auto) 2.9 10 ^3/uL (1.6-8.6); Nucleated Red Blood Cells % 0.4 %; Red Blood Cells 4.65 10^6/uL (4.0-5.20); Red Cell Distribution Width 16.8 % (11.8-14.3); White Blood Cell 4.9 10^3/uL (4.4-10.8)
[2022-04-18 15:47] LABS: Urine Bacteria MANY /hpf (None Seen); Urine Blood 3+ /uL (Negative); Urine Specific Gravity 1.003 (1.001-1.035); Urine WBC 2 /hpf (0 - 5)
[2022-04-18 15:52] LABS: Albumin 3.2 g/dL (3.4-5.0); BUN/Creatinine Ratio 27.4; Calcium 9.3 mg/dL (8.5-10.1); Potassium 4.2 mmol/L (3.5-5.1)
[2022-04-18 15:55] LABS: Bilirubin, Total 0.4 mg/dL (0.2-1.0); Total Protein 7.9 g/dL (6.4-8.2)
[2022-04-18] MEDS ORDERED: PANTOPRAZOLE 40 MG/10 ML VIAL INJ IV ONE (19:00)
[2022-04-18] MEDS ORDERED: MORPHINE SULFATE INJ 2 MG/ml SYRG IV PRN (19:00)
[2022-04-18] MEDS ORDERED: SODIUM CHLORIDE 0.9% 1,000 ML IV SCH (19:00)
[2022-04-18] MEDS ORDERED: NITROGLYCERIN 0.4 MG SL TAB SL PRN (19:00)
[2022-04-18] MEDS ORDERED: ALBUTEROL MEDNEB 2.5 mg/3ml NEB NEB PRN (19:15)
[2022-04-18 19:30] LABS: Cholesterol 140 mg/dL (< 200)
[2022-04-18 19:33] LABS: HDL Cholesterol 40 mg/dL (40-59); LDL Cholesterol 92 mg/dL (< 100); Triglycerides 72 mg/dL (< 150)
[2022-04-18 23:15] VITALS: BP 171/92
[2022-04-18] MEDS: GABAPENTIN 300 MG CAP PO SCH (23:59)
[2022-04-19] MEDS: RIOCIGUAT BASE PO SCH ×4 (00:04→22:00)
[2022-04-19 04:53] LABS: Basophils # (auto) 0 10 ^3/uL (0-0.2); Basophils % (auto) 0.5 % (0.0-2.0); Eosinophils # (auto) 0.1 10 ^3/uL (0-0.8); Eosinophils % (auto) 2.2 % (0.0-7.0); Hemoglobin 12.4 g/dL (12.2-16.2); Lymphocytes # (auto) 1.1 10 ^3/uL (0.4-5.4); Lymphocytes % (auto) 27.2 % (10.0-50.0); Mean Corpuscular Hemoglobin 27.2 pg (28.0-32.0); Mean Corpuscular Hgb Conc. 32.7 g/dL (32.0-36.0); Mean Corpuscular Volume 83.3 fL (80.0-100.0); Monocytes # (auto) 0.5 10 ^3/uL (0-1.3); Monocytes % (auto) 12.1 % (0.0-12.0); Neutrophils # (auto) 2.2 10 ^3/uL (1.6-8.6); Nucleated Red Blood Cells % 0.2 %; Red Blood Cells 4.56 10^6/uL (4.0-5.20); Red Cell Distribution Width 17.1 % (11.8-14.3); White Blood Cell 3.9 10^3/uL (4.4-10.8)
[2022-04-19 05:07] LABS: Albumin 2.7 g/dL (3.4-5.0); Calcium 8.9 mg/dL (8.5-10.1); Potassium 4.4 mmol/L (3.5-5.1)
[2022-04-19 05:09] LABS: BUN/Creatinine Ratio 23.1
[2022-04-19 05:11] LABS: Bilirubin, Total 0.6 mg/dL (0.2-1.0); Total Protein 6.7 g/dL (6.4-8.2)
[2022-04-19] MEDS: LEVOTHYROXINE SODIUM 100 MCG TAB PO SCH (06:38)
[2022-04-19] MEDS: LEVOTHYROXINE SODIUM 50 MCG TAB PO SCH (07:00)
[2022-04-19] MEDS: LEVOTHYROXINE SODIUM 25 MCG TAB PO SCH (07:01)
[2022-04-19] MEDS ORDERED: PANTOPRAZOLE 40 MG/10 ML VIAL INJ IV SCH (10:00)
[2022-04-19] MEDS: ATENOLOL 50 MG TAB PO SCH (10:00)
[2022-04-19] MEDS: amLODIPine BESYLATE 5 MG TAB PO SCH (10:00)
[2022-04-19] MEDS ORDERED: levoFLOXacin 500MG 100 ML IV ONE (14:15)
[2022-04-19] MEDS: POTASSIUM CHL 10 Meq TABLET PO SCH (15:08)
[2022-04-19] MEDS: GABAPENTIN 300 MG CAP PO SCH ×2 (15:09→23:40)
[2022-04-19] MEDS: ENOXAPARIN SOD 40 MG/0.4 ML SYRINGE SC SCH (15:09)
[2022-04-19] MEDS: FUROSEMIDE 40 MG TAB PO SCH (15:09)
[2022-04-19] MEDS ORDERED: ALBUTEROL MEDNEB 2.5 mg/3ml NEB ONE (18:13)
[2022-04-19] MEDS: MONTELUKAST SODIUM 10 MG TAB PO SCH (18:35)
[2022-04-19] MEDS: ALBUTEROL SULF 2.5 MG/0.5ML(0.5%) NEB SOLN NEB SCH (20:50)
[2022-04-19] MEDS: IPRATROPIUM BROM 0.5 MG/2.5ML INH SOL NEB SCH (20:50)
[2022-04-19] MEDS: ACETAMINOPHEN 325 MG TAB PO PRN (23:40)
[2022-04-20 05:54] LABS: Potassium 4.1 mmol/L (3.5-5.1)
[2022-04-20] MEDS: RIOCIGUAT BASE PO SCH ×3 (06:00→22:00)
[2022-04-20 06:02] LABS: BUN/Creatinine Ratio 19.4; Calcium 9.3 mg/dL (8.5-10.1)
[2022-04-20] MEDS ORDERED: ALBUTEROL MEDNEB 2.5 mg/3ml NEB ONE ×3 (06:09→18:32)
[2022-04-20] MEDS: LEVOTHYROXINE SODIUM 25 MCG TAB PO SCH (06:22)
[2022-04-20] MEDS: LEVOTHYROXINE SODIUM 100 MCG TAB PO SCH (06:22)
[2022-04-20] MEDS: LEVOTHYROXINE SODIUM 50 MCG TAB PO SCH (06:23)
[2022-04-20] MEDS: ALBUTEROL SULF 2.5 MG/0.5ML(0.5%) NEB SOLN NEB SCH ×3 (06:51→18:36)
[2022-04-20] MEDS: IPRATROPIUM BROM 0.5 MG/2.5ML INH SOL NEB SCH ×3 (06:51→18:36)
[2022-04-20 06:52] VITALS: BP 147/73
[2022-04-20 09:00] VITALS: BP 135/77
[2022-04-20] MEDS: levoFLOXacin 500MG 100 ML IV SCH (09:22)
[2022-04-20] MEDS: GABAPENTIN 300 MG CAP PO SCH ×2 (09:23→22:48)
[2022-04-20] MEDS: ENOXAPARIN SOD 40 MG/0.4 ML SYRINGE SC SCH (09:23)
[2022-04-20] MEDS: POTASSIUM CHL 10 Meq TABLET PO SCH (09:23)
[2022-04-20] MEDS: ATENOLOL 50 MG TAB PO SCH (09:25)
[2022-04-20] MEDS: FUROSEMIDE 40 MG TAB PO SCH (09:26)
[2022-04-20] MEDS: amLODIPine BESYLATE 5 MG TAB PO SCH (09:26)
[2022-04-20 13:00] VITALS: BP 138/59
[2022-04-20] MEDS ORDERED: IOHEXOL 300 MG/ML 100ML BOTTLE IJ ONE (16:18)
[2022-04-20 17:00] VITALS: BP 122/55
[2022-04-20] MEDS: MONTELUKAST SODIUM 10 MG TAB PO SCH (18:40)
[2022-04-20 22:00] VITALS: BP 132/52
[2022-04-21] MEDS: ACETAMINOPHEN 325 MG TAB PO PRN (02:42)
[2022-04-21 05:00] VITALS: BP 120/50
[2022-04-21] MEDS: RIOCIGUAT BASE PO SCH ×2 (05:59→14:00)
[2022-04-21] MEDS: LEVOTHYROXINE SODIUM 25 MCG TAB PO SCH (06:01)
[2022-04-21] MEDS: LEVOTHYROXINE SODIUM 50 MCG TAB PO SCH (06:01)
[2022-04-21] MEDS: LEVOTHYROXINE SODIUM 100 MCG TAB PO SCH (06:02)
[2022-04-21] MEDS ORDERED: ALBUTEROL MEDNEB 2.5 mg/3ml NEB ONE ×3 (06:07→17:51)
[2022-04-21] MEDS: ALBUTEROL SULF 2.5 MG/0.5ML(0.5%) NEB SOLN NEB SCH ×2 (07:08→13:24)
[2022-04-21] MEDS: IPRATROPIUM BROM 0.5 MG/2.5ML INH SOL NEB SCH ×2 (07:08→13:24)
[2022-04-21 08:30] VITALS: BP 124/57
[2022-04-21] MEDS: amLODIPine BESYLATE 5 MG TAB PO SCH (09:36)
[2022-04-21] MEDS: levoFLOXacin 500MG 100 ML IV SCH (09:36)
[2022-04-21] MEDS: FUROSEMIDE 40 MG TAB PO SCH (09:36)
[2022-04-21] MEDS: ATENOLOL 50 MG TAB PO SCH (09:37)
[2022-04-21] MEDS: POTASSIUM CHL 10 Meq TABLET PO SCH (09:37)
[2022-04-21] MEDS: GABAPENTIN 300 MG CAP PO SCH (09:37)
[2022-04-21 13:11] VITALS: BP 158/63
[2022-04-21] MEDS ORDERED: LEVO500T31 PO (15:37)
[2022-04-21] MEDS ORDERED: IPRATROPIUM BROM 0.5 MG/2.5ML INH SOL ONE (17:51)
== END 2022-04-21 17:26 | disposition home or self-care (01) | DRG 194 ==
LOC: ER 13:43 → EDBD 13:43 → TELE 19:03 → TELE-CENTR 04-20 03:17
PROVIDERS: ADMIT Nurse Practitioner Family; ATTEND Internal Medicine
DX: J18.9 Pneumonia, unspecified organism (principal); E46 Unspecified protein-calorie malnutrition; I50.32 Chronic diastolic (congestive) heart failure; J96.10 Chronic respiratory failure, unspecified whether with hypoxia or hypercapnia; E87.20 Acidosis, unspecified; J44.0 Chronic obstructive pulmonary disease with (acute) lower respiratory infection; I24.9 Acute ischemic heart disease, unspecified; Z20.822 Contact with and (suspected) exposure to COVID-19; G47.33 Obstructive sleep apnea (adult) (pediatric); I11.0 Hypertensive heart disease with heart failure; E78.5 Hyperlipidemia, unspecified; E03.9 Hypothyroidism, unspecified; I27.20 Pulmonary hypertension, unspecified; R22.2 Localized swelling, mass and lump, trunk; E07.9 Disorder of thyroid, unspecified; E11.65 Type 2 diabetes mellitus with hyperglycemia; E87.6 Hypokalemia; Z88.8 Allergy status to other drugs, medicaments and biological substances; Z80.8 Family history of malignant neoplasm of other organs or systems; Z82.3 Family history of stroke; Z82.49 Family history of ischemic heart disease and other diseases of the circulatory system; Z86.73 Personal history of transient ischemic attack (TIA), and cerebral infarction without residual deficits; Z90.710 Acquired absence of both cervix and uterus; Z88.1 Allergy status to other antibiotic agents; Z68.35 Body mass index [BMI] 35.0-35.9, adult
CPT/HCPCS: 36415; 71045; 71260; 80048; 80053; 80061; 81001; 83036; 83880; 84443; 84484; 85025; 85379; 87426; 93005; 93306; 94640; 97116; 97163; 97530; C9113; G0378; J1956

== ENCOUNTER → 2022-04-23 | Outpatient (CLI) | payer MEDICARE, MEDICAID ==
[~2022-04-23] VITALS: Ht 33 cm; Wt 100.7 kg
[~2022-04-23] MED LIST changes: +CYANOCOBALAMIN (B-12) 1000 MCG/1 ML VIAL IM ONE; +CYANOCOBALAMIN (B-12) 1000 MCG/1 ML VIAL ONE; +LEVO500T31 PO; +cefTRIAXone 1GM/50ML D5W 50 ML IV ONE; +methylPREDNISolone SOD SUCC 125 MG/2 ML VL IM SCH; +methylPREDNISolone SOD SUCC 125 MG/2 ML VL IV ONE; +methylPREDNISolone SOD SUCC 40 MG/ML VL ONE
[2022-04-23 11:57] VITALS: BP 122/70
[2022-04-23 13:02] VITALS: BP 133/58
== END | disposition home or self-care (01) ==
LOC: CHF HDHVI 11:58
PROVIDERS: ATTEND Internal Medicine Cardiovascular Disease
DX: J18.9 Pneumonia, unspecified organism (principal); J44.9 Chronic obstructive pulmonary disease, unspecified; J96.11 Chronic respiratory failure with hypoxia; E78.5 Hyperlipidemia, unspecified; E03.9 Hypothyroidism, unspecified; I11.0 Hypertensive heart disease with heart failure; I50.32 Chronic diastolic (congestive) heart failure; Z88.1 Allergy status to other antibiotic agents; Z90.710 Acquired absence of both cervix and uterus; Z86.73 Personal history of transient ischemic attack (TIA), and cerebral infarction without residual deficits; Z20.822 Contact with and (suspected) exposure to COVID-19; Z88.8 Allergy status to other drugs, medicaments and biological substances
CPT/HCPCS: 96365; 96372; 96375; G0463; J0696; J2920; J3420

== ENCOUNTER → 2022-08-08 | Outpatient (CLI) | payer MEDICARE, MEDICAID ==
[~2022-08-08] MED LIST changes: -AMLO-489 PO; +AMLO1TAB22 PO; -CYANOCOBALAMIN (B-12) 1000 MCG/1 ML VIAL IM ONE; -CYANOCOBALAMIN (B-12) 1000 MCG/1 ML VIAL ONE; +GABA-1250 PO; -GABA300C10 PO; +IBUP-1454 PO; -IBUP600T27 PO; +MONT5CHW12 PO; -MONT5CHW23 PO; -cefTRIAXone 1GM/50ML D5W 50 ML IV ONE; -methylPREDNISolone SOD SUCC 125 MG/2 ML VL IM SCH; -methylPREDNISolone SOD SUCC 125 MG/2 ML VL IV ONE; -methylPREDNISolone SOD SUCC 40 MG/ML VL ONE
== END | disposition home or self-care (01) ==
LOC: Rad HDHVI 15:50
PROVIDERS: ATTEND Internal Medicine Cardiovascular Disease
DX: M47.812 Spondylosis without myelopathy or radiculopathy, cervical region (principal); M25.78 Osteophyte, vertebrae; R06.02 Shortness of breath; J18.9 Pneumonia, unspecified organism
CPT/HCPCS: 71046; 72040

== ENCOUNTER → 2022-10-15 | Outpatient (CLI) | payer MEDICARE, MEDICAID ==
[~2022-10-15] MED LIST changes: +IPRAAER6 IN; +LEVO125T PO
[2022-10-15 12:38] VITALS: BP 150/67; PULSE 79; RESP 22; O2SAT 96
[2022-10-15 12:50] VITALS: BP 140/65; PULSE 79; RESP 22; O2SAT 96
== END | disposition home or self-care (01) ==
LOC: Rad HDHVI 12:08
PROVIDERS: ATTEND Internal Medicine Cardiovascular Disease
DX: Z01.818 Encounter for other preprocedural examination (principal); R07.9 Chest pain, unspecified; I10 Essential (primary) hypertension; R06.02 Shortness of breath; I27.21 Secondary pulmonary arterial hypertension; I20.0 Unstable angina
CPT/HCPCS: 71046; 93005; G0463

== ENCOUNTER 2022-10-18 08:14 | Day surgery (SDC) | payer MEDICARE, MEDICAID ==
[2022-10-16 13:45] LABS: Basophils # (auto) 0.1 10 ^3/uL (0-0.2); Eosinophils # (auto) 0.1 10 ^3/uL (0-0.8); Eosinophils % (auto) 1.5 % (0.0-7.0); Hematocrit 38.1 % (36.0-46.0); Hemoglobin 12.2 g/dL (12.2-16.2); Lymphocytes # (auto) 1.3 10 ^3/uL (0.4-5.4); Mean Corpuscular Hemoglobin 28.1 pg (28.0-32.0); Monocytes # (auto) 0.7 10 ^3/uL (0-1.3); Monocytes % (auto) 11.2 % (0.0-12.0); Neutrophils # (auto) 3.7 10 ^3/uL (1.6-8.6); Neutrophils % (auto) 63.3 % (37.0-80.0); Nucleated Red Blood Cells % 0.3 %; Red Blood Cells 4.34 10^6/uL (4.0-5.20); Red Cell Distribution Width 14.2 % (11.8-14.3); White Blood Cell 5.9 10^3/uL (4.4-10.8)
[2022-10-16 13:53] LABS: INR 1.12 (0.9-1.15); Partial Thromboplastin Time 27.2 SEC (24.5-34.5); Prothrombin Time 11.7 sec (9.3-11.8)
[2022-10-16 14:37] LABS: Potassium 4.2 mmol/L (3.5-5.1)
[2022-10-16 14:38] LABS: BUN/Creatinine Ratio 13.5 (10.0-20.0)
[~2022-10-18] VITALS: Ht 177.8 cm; Wt 95.3 kg
[2022-10-18] MEDS ORDERED: fentaNYL CITRATE 100 MCG/2 ML VL ONE (12:15)
[2022-10-18] MEDS ORDERED: ANGIOMAX 250 MG VIAL IV ONE (12:15)
[2022-10-18] MEDS ORDERED: MIDAZOLAM HCL 2MG/2ML 2ml VIAL (1mg/ml) ONE (12:16)
[2022-10-18] MEDS ORDERED: SODIUM CHL 0.9% 0 ML ONE (12:16)
[2022-10-18] MEDS ORDERED: BUMETANIDE 2.5mg/10ml (0.25 mg/ml) INJ IV ONE (13:00)
[2022-10-18] MEDS ORDERED: POTASSIUM CHL 20 Meq TABLET PO ONE (13:00)
== END 2022-10-18 15:17 | disposition home or self-care (01) ==
LOC: CATH 08:14
PROVIDERS: ATTEND Internal Medicine Cardiovascular Disease
DX: R07.89 Other chest pain (principal); I10 Essential (primary) hypertension; I25.10 Atherosclerotic heart disease of native coronary artery without angina pectoris; J44.9 Chronic obstructive pulmonary disease, unspecified; Z95.1 Presence of aortocoronary bypass graft; R06.02 Shortness of breath; Z79.899 Other long term (current) drug therapy
CPT/HCPCS: 36415; 80048; 85025; 85610; 85730; 93458; C1769; C1894; J2250; J3010; J7030; 99152; 99153

== ENCOUNTER → 2022-12-07 | Outpatient (CLI) | payer MEDICARE, MEDICAID ==
[~2022-12-07] VITALS: Ht 30.5 cm; Wt 0.5 kg
[~2022-12-07] MED LIST changes: -AMLO1TAB22 PO; +CYANOCOBALAMIN (B-12) 1000 MCG/1 ML VIAL IM ONE; +CYANOCOBALAMIN (B-12) 1000 MCG/1 ML VIAL ONE; -CYCL-839 PO; -FLUT1SPR5; -LEVO175T2 PO; -LEVO500T31 PO; -MONT5CHW12 PO; +cefTRIAXone 1GM/50ML D5W 50 ML IV ONE; +methylPREDNISolone SOD SUCC 125 MG/2 ML VL ONE; +methylPREDNISolone SOD SUCC 40 MG/ML VL IV ONE
[2022-12-07 12:40] VITALS: BP 112/56; PULSE 66; RESP 20; O2SAT 94
[2022-12-07 13:35] VITALS: BP 101/42; PULSE 70; RESP 20; O2SAT 94
== END | disposition home or self-care (01) ==
LOC: CHF HDHVI 13:01
PROVIDERS: ATTEND Internal Medicine Cardiovascular Disease
DX: J44.9 Chronic obstructive pulmonary disease, unspecified (principal); J06.9 Acute upper respiratory infection, unspecified; I27.21 Secondary pulmonary arterial hypertension; I25.10 Atherosclerotic heart disease of native coronary artery without angina pectoris; I10 Essential (primary) hypertension; Z79.899 Other long term (current) drug therapy; Z95.1 Presence of aortocoronary bypass graft
CPT/HCPCS: 94640; 96365; 96372; 96375; G0463; J0696; J2930; J3420

== ENCOUNTER → 2022-12-21 | Outpatient (CLI) | payer MEDICARE, MEDICAID ==
[~2022-12-21] VITALS: Ht 30.5 cm; Wt 0.5 kg
[~2022-12-21] MED LIST changes: -CYANOCOBALAMIN (B-12) 1000 MCG/1 ML VIAL IM ONE; -CYANOCOBALAMIN (B-12) 1000 MCG/1 ML VIAL ONE; +MEROPENEM 1GM IVPB 100 ML IV ONE; -cefTRIAXone 1GM/50ML D5W 50 ML IV ONE; -methylPREDNISolone SOD SUCC 125 MG/2 ML VL ONE; -methylPREDNISolone SOD SUCC 40 MG/ML VL IV ONE
[2022-12-21 11:30] VITALS: BP 144/60; PULSE 74; RESP 18; O2SAT 89
[2022-12-21 14:47] VITALS: BP 115/53; PULSE 58; RESP 18; O2SAT 93
== END | disposition home or self-care (01) ==
LOC: CHF HDHVI 11:32
PROVIDERS: ATTEND Internal Medicine Cardiovascular Disease
DX: J06.9 Acute upper respiratory infection, unspecified (principal); J44.9 Chronic obstructive pulmonary disease, unspecified; I25.10 Atherosclerotic heart disease of native coronary artery without angina pectoris; I10 Essential (primary) hypertension; I27.21 Secondary pulmonary arterial hypertension; Z79.899 Other long term (current) drug therapy; Z95.1 Presence of aortocoronary bypass graft
CPT/HCPCS: 96365; 96366; G0463; J2185

== ENCOUNTER → 2023-02-20 | Outpatient (CLI) | payer MEDICARE, MEDICAID ==
[~2023-02-20] MED LIST changes: -MEROPENEM 1GM IVPB 100 ML IV ONE
== END | disposition home or self-care (01) ==
LOC: Rad HDHVI 11:01
PROVIDERS: ATTEND Internal Medicine Cardiovascular Disease
DX: I07.1 Rheumatic tricuspid insufficiency (principal); I27.21 Secondary pulmonary arterial hypertension; R00.2 Palpitations; R06.02 Shortness of breath
CPT/HCPCS: 93306

== ENCOUNTER → 2023-03-21 | Outpatient (CLI) | payer MEDICARE, MEDICAID ==
[~2023-03-21] MED LIST changes: +CYANOCOBALAMIN (B-12) 1000 MCG/1 ML VIAL IM ONE; +CYANOCOBALAMIN (B-12) 1000 MCG/1 ML VIAL ONE
[2023-03-21 09:35] VITALS: BP 135/53; PULSE 65; RESP 20; O2SAT 85
[2023-03-21 10:32] VITALS: BP 142/67; PULSE 63; RESP 18; O2SAT 94
== END | disposition home or self-care (01) ==
LOC: CHF HDHVI 09:31
PROVIDERS: ATTEND Internal Medicine Cardiovascular Disease
DX: I27.21 Secondary pulmonary arterial hypertension (principal); D64.9 Anemia, unspecified; I11.0 Hypertensive heart disease with heart failure; I50.9 Heart failure, unspecified; J44.9 Chronic obstructive pulmonary disease, unspecified; E11.9 Type 2 diabetes mellitus without complications
CPT/HCPCS: 94618; 96372; G0463; J3420

== ENCOUNTER → 2023-04-25 | Outpatient (CLI) | payer MEDICARE, MEDICAID ==
[~2023-04-25] MED LIST changes: -CYANOCOBALAMIN (B-12) 1000 MCG/1 ML VIAL IM ONE; -CYANOCOBALAMIN (B-12) 1000 MCG/1 ML VIAL ONE
[2023-04-25 09:40] VITALS: BP 121/59; PULSE 78; RESP 18; O2SAT 94
[2023-04-25] MEDS: CYANOCOBALAMIN (B-12) 1000 MCG/1 ML VIAL ONE (09:47)
[2023-04-25] MEDS: CYANOCOBALAMIN (B-12) 1000 MCG/1 ML VIAL IM ONE (09:58)
[2023-04-25 10:25] VITALS: BP 124/58; PULSE 71; RESP 16; O2SAT 94
== END | disposition home or self-care (01) ==
LOC: CHF HDHVI 09:35
PROVIDERS: ATTEND Internal Medicine Cardiovascular Disease
DX: D64.9 Anemia, unspecified (principal); I11.0 Hypertensive heart disease with heart failure; I50.9 Heart failure, unspecified; J44.9 Chronic obstructive pulmonary disease, unspecified; E11.9 Type 2 diabetes mellitus without complications
CPT/HCPCS: 96372; G0463; J3420

== ENCOUNTER → 2023-08-19 | Outpatient (CLI) | payer MEDICARE, MEDICAID ==
[~2023-08-19] MED LIST changes: +POTA-36 PO; -POTA10TA51 PO
[2023-08-19 10:55] VITALS: BP 135/47; PULSE 67; RESP 20; O2SAT 92
[2023-08-19] MEDS: BUMETANIDE 2.5mg/10ml (0.25 mg/ml) INJ IV ONE (10:55)
[2023-08-19] MEDS: POTASSIUM CHL 20 Meq TABLET PO ONE (10:55)
[2023-08-19] MEDS: BUMETANIDE INJECTION 10 ML ONE (11:06)
[2023-08-19] MEDS: POTASSIUM CHL 10 Meq TABLET PO ONE (11:06)
[2023-08-19 11:43] VITALS: BP 145/54; PULSE 63; RESP 20; O2SAT 92
== END | disposition home or self-care (01) ==
LOC: Rad HDHVI 11:00
PROVIDERS: ATTEND Internal Medicine Cardiovascular Disease
DX: J32.8 Other chronic sinusitis (principal); I67.9 Cerebrovascular disease, unspecified
CPT/HCPCS: 70450; 96374; G0463

== ENCOUNTER → 2023-08-27 | Outpatient (CLI) | payer MEDICARE, MEDICAID ==
[2023-08-27 09:45] VITALS: BP 127/46; PULSE 68; RESP 18; O2SAT 90
[2023-08-27] MEDS: POTASSIUM CHL 20 Meq TABLET PO ONE (09:45)
[2023-08-27] MEDS: BUMETANIDE INJECTION 10 ML ONE (09:47)
[2023-08-27] MEDS: POTASSIUM CHL 10 Meq TABLET PO ONE (09:47)
[2023-08-27] MEDS: BUMETANIDE 2.5mg/10ml (0.25 mg/ml) INJ IV ONE (09:53)
[2023-08-27 10:30] VITALS: BP 122/50; PULSE 68; RESP 20; O2SAT 90
[2023-08-27 10:57] VITALS: BP 122/46; PULSE 68; RESP 20; O2SAT 90
== END | disposition home or self-care (01) ==
LOC: CHF HDHVI 09:38
PROVIDERS: ATTEND Internal Medicine Cardiovascular Disease
DX: R60.9 Edema, unspecified (principal)
CPT/HCPCS: 96374; G0463

== ENCOUNTER → 2023-08-29 | Outpatient (CLI) | payer MEDICARE, MEDICAID | END | disposition home or self-care (01) | LOC: Rad HDHVI 14:04 | PROVIDERS: ATTEND Internal Medicine Cardiovascular Disease | DX: I08.1 Rheumatic disorders of both mitral and tricuspid valves (principal); I11.9 Hypertensive heart disease without heart failure; R06.02 Shortness of breath | CPT/HCPCS: 93306 ==

== ENCOUNTER → 2023-09-03 | Outpatient (CLI) | payer MEDICARE, MEDICAID ==
[2023-09-03 09:50] VITALS: BP 107/49; PULSE 65; RESP 16; O2SAT 92
[2023-09-03] MEDS: POTASSIUM CHL 10 Meq TABLET PO ONE (09:51)
[2023-09-03] MEDS: BUMETANIDE INJECTION 10 ML ONE (09:51)
[2023-09-03] MEDS: BUMETANIDE 2.5mg/10ml (0.25 mg/ml) INJ IV ONE (10:06)
[2023-09-03] MEDS: POTASSIUM CHL 20 Meq TABLET PO ONE (10:08)
[2023-09-03 10:38] VITALS: BP 120/52; PULSE 68; RESP 18; O2SAT 92
== END | disposition home or self-care (01) ==
LOC: CHF HDHVI 09:48
PROVIDERS: ATTEND Internal Medicine Cardiovascular Disease
DX: R33.9 Retention of urine, unspecified (principal); I11.0 Hypertensive heart disease with heart failure; I50.9 Heart failure, unspecified; E11.9 Type 2 diabetes mellitus without complications; J44.9 Chronic obstructive pulmonary disease, unspecified
CPT/HCPCS: 96374; G0463

== ENCOUNTER → 2023-09-10 | Outpatient (CLI) | payer MEDICARE, MEDICAID ==
[2023-09-10 09:50] VITALS: BP 155/67; PULSE 70; RESP 18; O2SAT 92
[2023-09-10] MEDS: POTASSIUM CHL 10 Meq TABLET PO ONE (10:11)
[2023-09-10] MEDS: BUMETANIDE INJECTION 10 ML ONE (10:11)
[2023-09-10] MEDS: CYANOCOBALAMIN (B-12) 1000 MCG/1 ML VIAL ONE (10:21)
[2023-09-10] MEDS: BUMETANIDE 2.5mg/10ml (0.25 mg/ml) INJ IV ONE (10:36)
[2023-09-10] MEDS: POTASSIUM CHL 20 Meq TABLET PO ONE (10:38)
[2023-09-10] MEDS: CYANOCOBALAMIN (B-12) 1000 MCG/1 ML VIAL IM ONE (10:53)
[2023-09-10 10:56] VITALS: BP 169/77; PULSE 68; RESP 18; O2SAT 92
== END | disposition home or self-care (01) ==
LOC: CHF HDHVI 09:42
PROVIDERS: ATTEND Internal Medicine Cardiovascular Disease
DX: I11.0 Hypertensive heart disease with heart failure (principal); I50.9 Heart failure, unspecified; E11.9 Type 2 diabetes mellitus without complications; J44.9 Chronic obstructive pulmonary disease, unspecified
CPT/HCPCS: 96372; 96374; G0463; J3420

== ENCOUNTER → 2023-09-13 | Outpatient (CLI) | payer MEDICARE, MEDICAID ==
[2023-09-13 14:05] VITALS: BP 113/43; PULSE 58; RESP 20; O2SAT 89
[2023-09-13] MEDS: BUMETANIDE INJECTION 10 ML ONE (14:24)
[2023-09-13] MEDS: POTASSIUM CHL 10 Meq TABLET PO ONE (14:24)
[2023-09-13] MEDS: BUMETANIDE 2.5mg/10ml (0.25 mg/ml) INJ IV ONE (14:36)
[2023-09-13] MEDS: POTASSIUM CHL 20 Meq TABLET PO ONE (14:39)
[2023-09-13 14:53] VITALS: BP 114/51; PULSE 59; RESP 20; O2SAT 91
== END | disposition home or self-care (01) ==
LOC: CHF HDHVI 14:10
PROVIDERS: ATTEND Internal Medicine Cardiovascular Disease
DX: R60.9 Edema, unspecified (principal); R06.02 Shortness of breath; I11.0 Hypertensive heart disease with heart failure; I50.9 Heart failure, unspecified; J44.9 Chronic obstructive pulmonary disease, unspecified; E11.9 Type 2 diabetes mellitus without complications
CPT/HCPCS: 96374; G0463

== ENCOUNTER → 2023-09-18 | Outpatient (CLI) | payer MEDICARE, MEDICAID ==
[2023-09-18 09:46] VITALS: BP 137/47; PULSE 59; RESP 18; O2SAT 90
[2023-09-18] MEDS: POTASSIUM CHL 20 Meq TABLET PO ONE (09:46)
[2023-09-18] MEDS: POTASSIUM CHL 10 Meq TABLET PO ONE (09:52)
[2023-09-18] MEDS: BUMETANIDE INJECTION 10 ML ONE (09:52)
[2023-09-18] MEDS: BUMETANIDE 2.5mg/10ml (0.25 mg/ml) INJ IV ONE (10:00)
[2023-09-18 10:35] VITALS: BP 130/56; PULSE 60; RESP 18; O2SAT 94
== END | disposition home or self-care (01) ==
LOC: CHF HDHVI 09:39
PROVIDERS: ATTEND Internal Medicine Cardiovascular Disease
DX: R60.9 Edema, unspecified (principal); J44.9 Chronic obstructive pulmonary disease, unspecified; I11.0 Hypertensive heart disease with heart failure; I50.9 Heart failure, unspecified; E11.9 Type 2 diabetes mellitus without complications
CPT/HCPCS: 96374; G0463

== ENCOUNTER → 2023-09-25 | Outpatient (CLI) | payer MEDICARE, MEDICAID ==
[2023-09-25 09:59] VITALS: BP 126/55; PULSE 67; RESP 18; O2SAT 92
[2023-09-25] MEDS: BUMETANIDE 2.5mg/10ml (0.25 mg/ml) INJ IV ONE (09:59)
[2023-09-25] MEDS: POTASSIUM CHL 20 Meq TABLET PO ONE (09:59)
[2023-09-25] MEDS: BUMETANIDE INJECTION 10 ML ONE (10:07)
[2023-09-25] MEDS: POTASSIUM CHL 10 Meq TABLET PO ONE (10:07)
[2023-09-25 10:40] VITALS: BP 129/56; PULSE 67; RESP 20; O2SAT 93
== END | disposition home or self-care (01) ==
LOC: CHF HDHVI 09:55
PROVIDERS: ATTEND Internal Medicine Cardiovascular Disease
DX: I11.0 Hypertensive heart disease with heart failure (principal); I50.9 Heart failure, unspecified; R60.9 Edema, unspecified; J44.9 Chronic obstructive pulmonary disease, unspecified; E11.9 Type 2 diabetes mellitus without complications
CPT/HCPCS: 96374; G0463

== ENCOUNTER → 2023-09-30 | Outpatient (CLI) | payer MEDICARE, MEDICAID ==
[2023-09-30 11:10] VITALS: BP 140/60; PULSE 93; RESP 18; O2SAT 93
[2023-09-30] MEDS: MEROPENEM 1GM IVPB 50 ML IV ONE ×2 (11:20→11:28)
[2023-09-30] MEDS: VANCOMYCIN 1GM/200ML 200 ML IV ONE ×2 (11:20→11:28)
[2023-09-30 13:30] VITALS: BP 148/68; PULSE 64; RESP 18; O2SAT 94
== END | disposition home or self-care (01) ==
LOC: Rad HDHVI 11:08
PROVIDERS: ATTEND Internal Medicine Cardiovascular Disease
DX: R06.02 Shortness of breath (principal); R05.9 Cough, unspecified; I11.0 Hypertensive heart disease with heart failure; I50.9 Heart failure, unspecified; J44.9 Chronic obstructive pulmonary disease, unspecified; E11.9 Type 2 diabetes mellitus without complications
CPT/HCPCS: 71046; 96365; 96366; 96368; G0463; J2185; J3370

== ENCOUNTER → 2023-10-09 | Outpatient (CLI) | payer MEDICARE, MEDICAID ==
[~2023-10-09] MED LIST changes: +IOHEXOL 350 MG/ML 100ML IJ ONE
[2023-10-09 14:19] VITALS: BP 123/54; PULSE 71; RESP 18; O2SAT 91
[2023-10-09 14:48] VITALS: BP 141/55; PULSE 71; RESP 18; O2SAT 92
== END | disposition home or self-care (01) ==
LOC: Rad HDHVI 14:03
PROVIDERS: ATTEND Internal Medicine Cardiovascular Disease
DX: J90 Pleural effusion, not elsewhere classified (principal); J98.11 Atelectasis; R91.8 Other nonspecific abnormal finding of lung field; R06.02 Shortness of breath; I26.99 Other pulmonary embolism without acute cor pulmonale
CPT/HCPCS: 71260; G0463; Q9967

== ENCOUNTER → 2023-11-19 | Outpatient (CLI) | payer MEDICARE, MEDICAID ==
[~2023-11-19] MED LIST changes: -IOHEXOL 350 MG/ML 100ML IJ ONE
== END | disposition home or self-care (01) ==
LOC: Rad HDHVI 10:04
PROVIDERS: ATTEND Internal Medicine Cardiovascular Disease
DX: I51.7 Cardiomegaly (principal); R06.02 Shortness of breath
CPT/HCPCS: 71046

== ENCOUNTER → 2023-12-03 | Outpatient (CLI) | payer MEDICARE, MEDICAID ==
[2023-12-03] MEDS: CYANOCOBALAMIN (B-12) 1000 MCG/1 ML VIAL ONE (09:53)
[2023-12-03 09:54] VITALS: BP 126/55; PULSE 60; RESP 18; O2SAT 90
[2023-12-03] MEDS: CYANOCOBALAMIN (B-12) 1000 MCG/1 ML VIAL IM ONE (09:54)
[2023-12-03 10:07] VITALS: BP 118/54; PULSE 63; RESP 18; O2SAT 96
== END | disposition home or self-care (01) ==
LOC: CHF HDHVI 09:48
PROVIDERS: ATTEND Internal Medicine Cardiovascular Disease
DX: D64.9 Anemia, unspecified (principal); I27.0 Primary pulmonary hypertension; J44.9 Chronic obstructive pulmonary disease, unspecified; E11.9 Type 2 diabetes mellitus without complications
CPT/HCPCS: 96372; G0463; J3420

== ENCOUNTER → 2024-01-08 | Outpatient (CLI) | payer MEDICARE, MEDICAID ==
[2024-01-08 10:00] VITALS: BP 157/69; PULSE 57; RESP 16; O2SAT 90
[2024-01-08] MEDS: CYANOCOBALAMIN (B-12) 1000 MCG/1 ML VIAL IM ONE (10:00)
[2024-01-08 10:21] VITALS: BP 144/68; PULSE 56; RESP 16; O2SAT 91
[2024-01-08] MEDS: CYANOCOBALAMIN (B-12) 1000 MCG/1 ML VIAL ONE (11:05)
== END | disposition home or self-care (01) ==
LOC: CHF HDHVI 10:02
PROVIDERS: ATTEND Internal Medicine Cardiovascular Disease
DX: I10 Essential (primary) hypertension (principal); D64.9 Anemia, unspecified
CPT/HCPCS: 96372; G0463; J3420

== ENCOUNTER → 2024-01-22 | Outpatient (CLI) | payer MEDICARE, MEDICAID ==
--- NOTE | 2024-01-22 13:54 | DVHSR ---
APPROVED REPORT EXAM: Two-dimensional and M-mode echocardiogram with Doppler and color Doppler. DIMENSIONS LVDd5.2 (3.8-5.7cm)LA (2D)4.4 (1.9-4.0cm)Aortic Root3.2 (2.0-3.7cm) LVDs3.6 (2.5-4.0cm)LA (MM) (1.9-4.0cm)Aortic Cusp Exc1.1 (1.5-2.0cm) EF (%) 60.0 (55-70%)Rt. Atrium4.1 (1.9-4.0cm)Asc. Aorta cm IVSd1.0 (0.7-1.1cm)RV (D) (1.8-2.4cm) PWd1.1 (0.7-1.1cm) Mitral Valve MitralMitral Stenosis E wave1.44m/sMV Mean GR.3mmHg A wave1.04m/sMV Peak GR.9mmHg E/A ratio1.42D MVAcm2 DECEL [id number] 1/2 [id number] IVRTmsDop MVA3.63cm2 Aortic Valve Aortic ValveAortic Stenosis V11.41m/Cecile Mean GR.38mmHg V24.03m/Cecile Peak GR.65mmHg LVOT Diameter2.1 (1.8-2.4cm)Doppler AVA1.21cm2 Pulmonic Valve V20.99m/s Tricuspid Valve TR Velocity3.61m/s [id number] LEFT VENTRICLE The left ventricle is normal size. The left ventricle is normal in structure and function. The Ejection Fraction is within normal limits. RIGHT VENTRICLE The right ventricle is normal size. ATRIA The left atrium is enlarged. The right atrium is enlarged. The interatrial septum is intact with no evidence for an atrial septal defect. MITRAL VALVE The mitral valve is normal in structure. Mitral annular calcification is mild to moderate. Mitral regurgitation is mild. PULMONIC VALVE The pulmonic valve is not well visualized. TRICUSPID VALVE The tricuspid valve is grossly normal. AORTIC VALVE The aortic valve is moderately calcified. No aortic regurgitation is present. There is moderate valvular aortic stenosis. Calculated aortic valve area is 1.21 cm2 with maximum pressure gradient of 65 mmHg and mean pressure gradient of 38 mmHg. GREAT VESSELS The aortic root is normal size. PERICARDIAL EFFUSION There is no pericardial effusion. Other Information Technically limited study due to body habitus. Conclusion LAE MOD MOD AV CALCIFICATION MILD MAC MILD MR EF >55% MILD PAH
== END | disposition home or self-care (01) ==
LOC: Rad HDHVI 09:08
PROVIDERS: ATTEND Internal Medicine Cardiovascular Disease
DX: I08.0 Rheumatic disorders of both mitral and aortic valves (principal); R07.89 Other chest pain
CPT/HCPCS: 93306

== ENCOUNTER → 2024-03-02 | Outpatient (CLI) | payer MEDICARE, MEDICAID ==
[~2024-03-02] VITALS: Ht 177.8 cm; Wt 90.3 kg
[~2024-03-02] MED LIST changes: +ADENOSINE 76 MG in GIVE UN-DILUTED 0 ML IV ONE; +ADENOSINE 90 MG/30 ML INJ IV ONE
[2024-03-02] MEDS: CYANOCOBALAMIN (B-12) 1000 MCG/1 ML VIAL ONE (11:12)
[2024-03-02] MEDS: CYANOCOBALAMIN (B-12) 1000 MCG/1 ML VIAL IM ONE (11:25)
== END | disposition home or self-care (01) ==
LOC: Rad HDHVI 09:31
PROVIDERS: ATTEND Internal Medicine Cardiovascular Disease
DX: R42 Dizziness and giddiness (principal); I10 Essential (primary) hypertension; R07.89 Other chest pain; R06.02 Shortness of breath; I27.21 Secondary pulmonary arterial hypertension; E11.21 Type 2 diabetes mellitus with diabetic nephropathy
CPT/HCPCS: 78452; 93005; 96374; 96375; A9500; J0153; J3420

== ENCOUNTER → 2024-04-08 | Outpatient (CLI) | payer MEDICARE, MEDICAID ==
[~2024-04-08] MED LIST changes: -ADENOSINE 76 MG in GIVE UN-DILUTED 0 ML IV ONE; -ADENOSINE 90 MG/30 ML INJ IV ONE
--- NOTE | 2024-04-08 16:05 | [facility]H ---
EXAMINATION: XY L RIB X RAY INDICATION: RIB FX COMPARISON: None TECHNIQUE: Frontal view of the chest and 3 views of the left ribs history FINDINGS: No focal consolidation, pleural effusion or significant pneumothorax. Normal cardiomediastinal silhou ette. No displaced left rib fracture. IMPRESSION: No acute cardiopulmonary disease. No displaced left rib fracture.
== END | disposition home or self-care (01) ==
LOC: Rad HDHVI 14:41
PROVIDERS: ATTEND Internal Medicine Cardiovascular Disease
DX: S22.32XA Fracture of one rib, left side, initial encounter for closed fracture (principal); X58.XXXA Exposure to other specified factors, initial encounter; Y93.89 Activity, other specified; Y92.89 Other specified places as the place of occurrence of the external cause; Y99.8 Other external cause status
CPT/HCPCS: 71101

== ENCOUNTER → 2024-06-17 | Outpatient (CLI) | payer MEDICARE, MEDICAID ==
[2024-06-17 10:40] VITALS: BP 140/56; PULSE 55; RESP 18; O2SAT 93
[2024-06-17] MEDS: POTASSIUM CHL 10 Meq TABLET PO ONE (10:44)
[2024-06-17] MEDS: BUMETANIDE INJECTION 10 ML ONE (10:44)
[2024-06-17] MEDS: BUMETANIDE 2.5mg/10ml (0.25 mg/ml) INJ IV ONE (10:48)
[2024-06-17] MEDS: POTASSIUM CHL 20 Meq TABLET PO ONE (10:50)
[2024-06-17 11:33] VITALS: BP 158/66; PULSE 57; RESP 16; O2SAT 93
== END | disposition home or self-care (01) ==
LOC: CHF HDHVI 10:37
PROVIDERS: ATTEND Internal Medicine Cardiovascular Disease
DX: I10 Essential (primary) hypertension (principal); E11.9 Type 2 diabetes mellitus without complications
CPT/HCPCS: 96374; G0463

== ENCOUNTER 2024-07-29 14:50 | Outpatient (CLI) | payer MEDICARE, MEDICAID ==
[2024-07-29 14:54] VITALS: BP 103/53; PULSE 60; RESP 17; O2SAT 94
[2024-07-29 15:09] VITALS: BP 95/51; PULSE 51; RESP 17; O2SAT 93
== END 2024-07-29 17:00 | disposition home or self-care (01) ==
LOC: CHF HDHVI 14:50
PROVIDERS: ATTEND Internal Medicine Cardiovascular Disease
DX: I51.7 Cardiomegaly (principal); R94.31 Abnormal electrocardiogram [ECG] [EKG]; R07.9 Chest pain, unspecified
CPT/HCPCS: 93005; G0463

== ENCOUNTER → 2024-10-20 | Outpatient (CLI) | payer MEDICARE, MEDICAID | END | disposition home or self-care (01) | LOC: Rad HDHVI 09:14 | PROVIDERS: ATTEND Internal Medicine Cardiovascular Disease | DX: I08.3 Combined rheumatic disorders of mitral, aortic and tricuspid valves (principal); I27.20 Pulmonary hypertension, unspecified; I42.1 Obstructive hypertrophic cardiomyopathy | CPT/HCPCS: 93306 ==

== ENCOUNTER 2024-10-28 10:19 | Outpatient (CLI) | payer MEDICARE, MEDICAID ==
[~2024-10-28] VITALS: Ht 177.8 cm; Wt 159.0 kg
[2024-10-28 10:24] VITALS: BP 98/42; PULSE 68; RESP 16; O2SAT 93
[2024-10-28] MEDS: D5W/SOD CHL 0.45% 1,000 ML IV ONE (10:24)
[2024-10-28] MEDS: MULTIPLE VIT 10 ML IV ONE (10:26)
[2024-10-28] MEDS: CYANOCOBALAMIN (B-12) 1000 MCG/1 ML VIAL ONE (10:26)
[2024-10-28] MEDS: CYANOCOBALAMIN (B-12) 1000 MCG/1 ML VIAL IM ONE (11:00)
[2024-10-28] MEDS: MULTIPLE VITAMIN IV ONE (11:23)
[2024-10-28] MEDS: SOD CHL IV ONE (11:23)
[2024-10-28] MEDS: D5 IV ONE (11:23)
[2024-10-28 14:03] VITALS: BP 102/43; PULSE 63; RESP 18; O2SAT 92
== END 2024-10-28 17:00 | disposition home or self-care (01) ==
LOC: CHF HDHVI 10:19
PROVIDERS: ATTEND Internal Medicine Cardiovascular Disease
DX: E86.0 Dehydration (principal); C79.9 Secondary malignant neoplasm of unspecified site; I95.9 Hypotension, unspecified; J44.9 Chronic obstructive pulmonary disease, unspecified; I11.0 Hypertensive heart disease with heart failure; I50.9 Heart failure, unspecified; E78.5 Hyperlipidemia, unspecified; E03.9 Hypothyroidism, unspecified; G47.33 Obstructive sleep apnea (adult) (pediatric); Z79.899 Other long term (current) drug therapy; Z86.718 Personal history of other venous thrombosis and embolism; Z95.1 Presence of aortocoronary bypass graft; Z86.73 Personal history of transient ischemic attack (TIA), and cerebral infarction without residual deficits
CPT/HCPCS: 96365; 96366; 96372; G0463; J3420; 96360; 96361

== ENCOUNTER 2024-10-30 11:51 | Outpatient (CLI) | payer MEDICARE, MEDICAID ==
[2024-10-30] MEDS: MULTIPLE VIT 10 ML IV ONE (12:42)
[2024-10-30 12:45] VITALS: BP 97/49; PULSE 63; RESP 16; O2SAT 94
[2024-10-30] MEDS: ONDANSETRON HCL 4 MG/2 ML VIAL IV ONE (12:50)
[2024-10-30] MEDS: MVI in SODIUM CHLORIDE 0.9% 1,000 ML IVB ONE (12:51)
[2024-10-30] MEDS: ONDANSETRON HCL 4 MG/2 ML VIAL ONE (12:52)
[2024-10-30 15:28] VITALS: BP 98/41; PULSE 58; RESP 16; O2SAT 94
== END 2024-10-30 17:00 | disposition home or self-care (01) ==
LOC: CHF HDHVI 11:51
PROVIDERS: ATTEND Internal Medicine Cardiovascular Disease
DX: E86.0 Dehydration (principal); I11.0 Hypertensive heart disease with heart failure; I50.9 Heart failure, unspecified; E11.21 Type 2 diabetes mellitus with diabetic nephropathy; E11.65 Type 2 diabetes mellitus with hyperglycemia; J44.9 Chronic obstructive pulmonary disease, unspecified; E78.5 Hyperlipidemia, unspecified; E03.9 Hypothyroidism, unspecified; F32.9 Major depressive disorder, single episode, unspecified; G47.33 Obstructive sleep apnea (adult) (pediatric); R11.0 Nausea; Z79.899 Other long term (current) drug therapy; Z95.1 Presence of aortocoronary bypass graft; Z86.73 Personal history of transient ischemic attack (TIA), and cerebral infarction without residual deficits; Z86.718 Personal history of other venous thrombosis and embolism
CPT/HCPCS: 96365; 96366; 96375; G0463; J2405; 96360; 96361

== ENCOUNTER 2024-12-08 10:40 | Outpatient (CLI) | payer MEDICARE, MEDICAID ==
[2024-12-08 10:48] VITALS: BP 127/65; PULSE 76; RESP 20
[2024-12-08] MEDS: ONDANSETRON HCL 4 MG/2 ML VIAL ONE (10:48)
[2024-12-08] MEDS: MULTIPLE VIT 10 ML IV ONE (10:49)
[2024-12-08] MEDS: ONDANSETRON HCL 4 MG/2 ML VIAL IV ONE (10:51)
[2024-12-08] MEDS: MVI in SODIUM CHLORIDE 0.9% 1,000 ML IVB ONE (10:52)
[2024-12-08] MEDS: CYANOCOBALAMIN (B-12) 1000 MCG/1 ML VIAL ONE (10:55)
[2024-12-08] MEDS: PIPERACILLIN-TAZO 4.5GM 100 ML IV ONE ×2 (13:08→13:14)
[2024-12-08] MEDS: CYANOCOBALAMIN (B-12) 1000 MCG/1 ML VIAL IM ONE (14:14)
[2024-12-08 14:19] VITALS: BP 126/51; PULSE 68; RESP 20
== END 2024-12-08 17:00 | disposition home or self-care (01) ==
LOC: CHF HDHVI 10:40
PROVIDERS: ATTEND Internal Medicine Cardiovascular Disease
DX: E86.0 Dehydration (principal); L03.115 Cellulitis of right lower limb; R53.83 Other fatigue; I11.0 Hypertensive heart disease with heart failure; I50.9 Heart failure, unspecified; J44.9 Chronic obstructive pulmonary disease, unspecified; E11.21 Type 2 diabetes mellitus with diabetic nephropathy; E78.5 Hyperlipidemia, unspecified; E03.9 Hypothyroidism, unspecified; G47.33 Obstructive sleep apnea (adult) (pediatric); F32.A Depression, unspecified; Z79.899 Other long term (current) drug therapy; Z86.73 Personal history of transient ischemic attack (TIA), and cerebral infarction without residual deficits; Z95.1 Presence of aortocoronary bypass graft
CPT/HCPCS: 96365; 96366; 96367; 96372; 96375; G0463; J2405; J2543; J3420; J7030; 96360; 96361

== ENCOUNTER 2024-12-22 10:52 | Outpatient (CLI) | payer MEDICARE, MEDICAID ==
[2024-12-22 11:00] VITALS: BP 119/49; PULSE 85; RESP 16; O2SAT 92
[2024-12-22] MEDS: POTASSIUM CHL 10 Meq TABLET PO ONE (11:16)
[2024-12-22] MEDS: BUMETANIDE INJECTION 10 ML ONE (11:16)
[2024-12-22] MEDS: BUMETANIDE 2.5mg/10ml (0.25 mg/ml) INJ IV ONE (12:13)
[2024-12-22] MEDS: POTASSIUM CHL 20 Meq TABLET PO ONE (12:14)
[2024-12-22 12:18] VITALS: BP 106/60; PULSE 83; RESP 16; O2SAT 94
== END 2024-12-22 17:00 | disposition home or self-care (01) ==
LOC: CHF HDHVI 10:52
PROVIDERS: ATTEND Internal Medicine Cardiovascular Disease
DX: L03.115 Cellulitis of right lower limb (principal); R60.9 Edema, unspecified; I11.0 Hypertensive heart disease with heart failure; I50.9 Heart failure, unspecified; J44.9 Chronic obstructive pulmonary disease, unspecified; E78.5 Hyperlipidemia, unspecified; E11.21 Type 2 diabetes mellitus with diabetic nephropathy; F32.9 Major depressive disorder, single episode, unspecified; E03.9 Hypothyroidism, unspecified; G47.33 Obstructive sleep apnea (adult) (pediatric); Z79.899 Other long term (current) drug therapy; Z95.1 Presence of aortocoronary bypass graft; Z86.73 Personal history of transient ischemic attack (TIA), and cerebral infarction without residual deficits; Z86.718 Personal history of other venous thrombosis and embolism
CPT/HCPCS: 96365; 96375; G0463; J1956

== ENCOUNTER 2025-01-18 10:07 | Outpatient (CLI) | payer MEDICARE, MEDICAID ==
[2025-01-18 10:15] VITALS: BP 104/58; PULSE 95; RESP 16; O2SAT 90
[2025-01-18 11:13] VITALS: BP 103/56; PULSE 91; RESP 16; O2SAT 92
== END 2025-01-18 17:00 | disposition home or self-care (01) ==
LOC: CHF HDHVI 10:07
PROVIDERS: ATTEND Internal Medicine Cardiovascular Disease
DX: R60.9 Edema, unspecified (principal)
CPT/HCPCS: G0463

== ENCOUNTER 2025-03-02 11:55 | Outpatient (CLI) | payer MEDICARE, MEDICAID ==
[2025-03-02 12:00] VITALS: BP 102/67; PULSE 128; RESP 20; O2SAT 95
[2025-03-02] MEDS: diphenhydrAMINE HCL 50 MG/1 ML VL ONE (12:52)
[2025-03-02] MEDS: TRIAMCINOLONE 40MG/ML 1ML VIAL ONE (12:52)
[2025-03-02] MEDS: diphenhydrAMINE HCL 50 MG/1 ML VL IV ONE (13:00)
[2025-03-02] MEDS: TRIAMCINOLONE 40MG/ML 1ML VIAL IM ONE (13:01)
[2025-03-02 13:06] VITALS: BP 90/60; PULSE 127; RESP 20; O2SAT 95
== END 2025-03-02 17:00 | disposition home or self-care (01) ==
LOC: CHF HDHVI 11:55
PROVIDERS: ATTEND Internal Medicine Cardiovascular Disease
DX: I47.29 Other ventricular tachycardia (principal); L30.9 Dermatitis, unspecified; J43.9 Emphysema, unspecified; I11.0 Hypertensive heart disease with heart failure; I50.33 Acute on chronic diastolic (congestive) heart failure; E78.00 Pure hypercholesterolemia, unspecified; E11.40 Type 2 diabetes mellitus with diabetic neuropathy, unspecified; I48.91 Unspecified atrial fibrillation; I48.92 Unspecified atrial flutter
CPT/HCPCS: 93005; 96372; 96374; G0463; J1200; J3301